=== PATIENT | female | born 1990 | race Two or more races ===

== ENCOUNTER 2023-09-07 05:25 | Inpatient (IN) ==
--- NOTE | 2023-09-01 15:06 | Anesthesiology Consultation ---
Date of Service September 01, 2023 Assessment & Plan (1) Encounter for pre-operative examination: Chart Review Chart Review: charge entry clerk initiated -Infectious Disease screening: Per PAT nursing assessment on 09/01/23. No known infectious disease contacts in past 10 days or current infectious disease symptoms. No recent travel outside the country. History Surgery Operation Date: 09/07/23 07:30 Proposed Procedures p Section in LD - Russell Montgomery MD Height/Weight Height: 5 ft 2 in Weight: 72.575 kg Allergies Allergy/AdvReac Type Severity Reaction Status Date / Time gluten Allergy Unknown celiac Verified 09/01/23 14:24 disease Medications Home Medications Medication Instructions Recorded Confirmed Last Taken acetaminophen 325 mg tablet 325 mg PO QID PRN Pain 09/01/23 09/01/23 Unknown ferrous sulfate 325 mg (65 mg 325 mg PO DAILY 09/01/23 09/01/23 Unknown iron) tablet (Iron (ferrous sulfate)) magnesium 250 mg tablet 600 mg PO DAILY 09/01/23 09/01/23 Unknown omeprazole 20 mg capsule,delayed 20 mg PO QAM 09/01/23 09/01/23 Unknown release [id number] 1 mg 1 tab PO QAM 09/01/23 09/01/23 Unknown tablet Past Medical History Medical History Anxiety Celiac disease Hx of migraines treated w/ acupuncture Lactose intolerance Past Family History Family History Other No family history of adverse response to anesthesia Past Surgical History Surgical History Hx of colonoscopy Hx of surgical procedure labial surgery Hx of wisdom tooth extraction Social History Smoking Status: Current every day smoker Smoking cigarettes per day: 4-5 per day - advised Do You Dip or Chew Tobacco: No Hx Alcohol Use: No Hx Substance Use: No substance use type: does not use
[2023-09-07] MEDS: LACTATED RINGER'S 1,000 ML IV SCH (06:00)
[2023-09-07] MEDS ORDERED: LACTATED RINGER'S 1,000 ML IV SCH ×2 (06:00→09:15)
[2023-09-07 06:12] LABS: Basophils # (auto) 0.03 K/uL (0.00-0.20); Basophils % (auto) 0.3 %; Eosinophils # (auto) 0.06 K/uL (0.00-0.50); Eosinophils % (auto) 0.5 %; Hematocrit (blood only) 36.6 % (37.0-47.0); Hemoglobin 12.7 g/dl (12.0-16.0); Immature Granulocytes # (auto) 0.08 K/uL (0.01-0.20); Immature Granulocytes % (auto) 0.7 %; Lymphocytes # (auto) 1.76 K/uL (1.20-3.40); Lymphocytes % (auto) 15.3 %; Mean Corpuscular Hemoglobin 30.1 pg (25.0-34.0); Mean Corpuscular Hgb Conc 34.7 g/dL (32.0-36.0); Mean Corpuscular Volume 86.7 fL (80.0-100.0); Mean Platelet Volume 11.6 fL (9.4-12.4); Monocytes # (auto) 0.66 K/uL (0.11-0.59); Monocytes % (auto) 5.7 %; Neutrophils % (auto) 77.5 %; Platelet Count 232 K/uL (130-400); RDW Coefficient of Variation 13.2 % (11.5-14.5); RDW Standard Deviation 41.2 fL (36.4-46.3); Red Blood Count 4.22 M/uL (4.20-5.40); White Blood Count 11.49 K/ul (4.8-10.8)
[2023-09-07] MEDS ORDERED: MoRPHine SULFATE PF 1 MG/ML 10 ML AMP/VIAL ONE (07:03)
[2023-09-07] MEDS: CITRIC ACID/SODIUM CITRATE 15 ML UDC ONE (07:05)
[2023-09-07] MEDS: ceFAZolin 2000MG 2,000 MG/15 ML SYR IV SCH (07:43)
--- NOTE | 2023-09-07 07:43 | History & Physical Bridge Note ---
Date of Service September 07, 2023 History & Physical Bridge Note I have examined the patient, reviewed the History & Physical and in the interval since the performance of the History & Physical I have noted the following changes of clinical significance: no changes noted
[2023-09-07] MEDS ORDERED: ePHEDrine sulfate 50 MG/5 ML SYR ONE (08:09)
[2023-09-07] MEDS ORDERED: PHENYLEPHRINE 100MCG/ML 10ML SYR IV ONE (08:09)
[2023-09-07] MEDS ORDERED: METOCLOPRAMIDE HCL INJ 5 MG/ML 2 ML VIAL ONE (08:09)
[2023-09-07] MEDS ORDERED: OXYTOCIN 10 UNITS/ML VIAL ONE ×2 (08:09→08:24)
[2023-09-07] MEDS ORDERED: ONDANSETRON INJ 2 MG/ML 2 ML VIAL ONE (08:09)
[2023-09-07] MEDS ORDERED: METHYLERGONOVINE MALEATE 0.2 MG/ML AMP ONE (08:24)
[2023-09-07] MEDS ORDERED: MoRPHine SULFATE 2 MG/ML CARP IV PRN (08:25)
[2023-09-07] MEDS ORDERED: PROMETHAZINE HCL 6.25 MG in SODIUM CHLORIDE 0.9% 50 ML IV PRN (08:25)
[2023-09-07] MEDS ORDERED: NALOXONE HCL 0.4 MG/1 ML VIAL/CARP IV PRN (08:25)
[2023-09-07] MEDS ORDERED: diphenhydrAMINE 50 MG/ML VIAL IV PRN (08:25)
[2023-09-07] MEDS ORDERED: NALBUPHINE HCL 5 MG in SYRINGE 0 ML IV PRN (08:25)
[2023-09-07] MEDS ORDERED: ePHEDrine sulfate 50 MG/ML AMP IV PRN (08:25)
[2023-09-07] MEDS ORDERED: NALOXONE HCL 0.08 MG in SYRINGE 1.8 ML IV PRN (08:25)
[2023-09-07] MEDS ORDERED: NALOXONE HCL 1 MG in SODIUM CHLORIDE 0.9% 1,000 ML IV PRN (08:25)
[2023-09-07] MEDS ORDERED: LACTATED RINGER'S 500 ML IV PRN (08:25)
[2023-09-07] MEDS ORDERED: ONDANSETRON INJ 2 MG/ML 2 ML VIAL IV PRN (08:25)
[2023-09-07] MEDS ORDERED: MoRPHine SULFATE PF 1 MG/ML 10 ML AMP/VIAL INT SPINAL ONE (08:25)
[2023-09-07] MEDS ORDERED: NO NARCOTICS OR SEDATIVES SCH (08:30)
[2023-09-07] MEDS ORDERED: SODIUM CHLORIDE 0.9% 1,000 ML IV SCH (08:30)
[2023-09-07] MEDS ORDERED: DC INTRASPINAL MORPHINE SCH (08:30)
[2023-09-07] MEDS ORDERED: PROPOFOL IV EMULSION 10 MG/ML 20 ML VIAL IV ONE (08:32)
[2023-09-07] MEDS: miSOPROStoL 200 MCG TAB ONE (09:00)
[2023-09-07] MEDS ORDERED: DIPHTHER/TETAN/PERTUS Vaccine (Tdap, Adol/Adult) 0.5mL IM ONE (09:11)
[2023-09-07] MEDS ORDERED: BENZOCAINE 20% SPRY 85 APPLN/85 GM CAN EXT PRN (09:11)
[2023-09-07] MEDS ORDERED: MAGNESIUM HYDROXIDE SUSP 30 ML UDC PO PRN (09:11)
[2023-09-07] MEDS ORDERED: SENNA 8.6 MG TAB PO PRN (09:11)
[2023-09-07] MEDS ORDERED: HYDROCORTISONE ACETATE 25 MG SUPP PR PRN (09:11)
--- NOTE | 2023-09-07 09:28 | Operative Report ---
Post Operative Report Pre & Post Diagnosis Operation Date: 09/07/23 07:30 > #1 at term. Patient wishes to have late section history of labioplasty. I identified the patient and participated in the time-out.: Yes Procedure Operation Date: 09/07/23 07:30 <No data on this case meets the specified criteria> primary section. Surgeon Russell Montgomery MD Induction Furnace Operator Dr sherwood Estimated Blood Loss 400 Findings Consistent with Post-Op Diagnosis infant delivered in cephalic presentation. Uterus is unremarkable tubes and ovaries are unremarkable there are no adhesions seen in the abdominal and pelvic Fluids IVF; 1900 urine 250 Specimens Placenta and cord gasses Drains luciano cath Anesthesia Type Spinal Complications none Indications at term patient is patient wishes to have elective section because of labioplasty. Description of Procedure Patient brought to the operating room Prepped and draped in normal sterile fashion in dorsal supine position with a leftward tilt. Time out is performed. Patient is identified by name and date of . Allergy and antibiotics and reviewed and confirmed. Skin check is performed to see if anesthesia is adequate A Pfannenstiel incision is made and carried out to the fascia with a scalpel. Fascia is incised in the midline extended laterally on both sides with Michaud scissors. Popeye's were used to grab the superior part of the fascial incision and the rectus abdominis muscle dissected with Michaud scissors.. Same procedure was performed on the lower section of the fascia. The rectus muscle is then in the midline and the peritoneum identified, tented up and entered sharply with the Metzenbaum scissors. The peritoneal incision was then extended superiorly and inferiorly with good visualization of the bladder. An Jag retractor was then inserted to provide better visualization and retraction. Vesicouterine peritoneum was identified, grasped with pickups and entered sharply with Metzenbaum scissors. The incision was then extended laterally and the bladder flap created with Metzenbaum scissors. The lower uterine segment incision was performed in a transverse fashion with a scalpel. Uterine incision was then extended laterally with the bandage scissors. Amniotomy is performed. Amniotic shows meconium The infant's head was delivered atraumatically. There is one cord which is easily reduced Nose and mouth suctioned with the bulb suction. Delayed cord clamping performed and cord is then clamped and cut and is handed over to the waiting pediatric team. Cord blood and gases obtained The placenta is then removed manually the uterus is exteriorized and cleared of all clots and debris. Uterine incision it repaired with 0-Vicryl in a locking fashion. A second layer of 0-Vicryl is used to obtain excellent hemostasis. Uterus is placed back into the abdominal cavity. The bladder flap was repaired in a running fashion with plain suture. Copious amount of irrigation was used to irrigate the abdomen. Gutters were cleared of all clots and debris . Hemostasis was obtained. The Jag retractor is removed as well as sponges or instruments in the abdomen. The peritoneum was identified and closed in a running fashion using plain suture. The rectus abdominis muscle was examined to ensure there no bleeding. The rectus abdominis muscle was approximated loosely using plain suture in a [id number] manner. Once again hemostasis is confirmed. The fascia was grasped with Harmeet's and closed in a running fashion. Both fascial layers are closed together using 0-Vicryl suture. Subcutaneous space is irrigated and hemostasis was confirmed. Subcutaneous space is approximated with plain suture. Skin is closed with darrian. The patient tolerated procedure well sponge just labs needle counts were correct x2 patient is sent to recovery in stable condition I attest to the content of the Intraoperative Record and any orders documented therein. Any exceptions are noted below. Induction Furnace Operator was necessary for retraction and manipulation of instruments in order to provide for a safe operation
[2023-09-07] MEDS: OXYTOCIN 20 UNITS/LR 1,002 ML IV SCH (09:36)
[2023-09-07 09:42] LABS: Base Excess Cord Venous Blood -0.7 mEq/L (-7.7-1.9); Cord Venous Blood HCO3 26 mmol/L (18.4-26.8); Cord Venous Blood PCO2 49 mmHg (30.4-57.2); Cord Venous Blood PO2 26 mmHg (14.1-43.3); Cord Venous Blood pH 7.33 (7.20-7.44); O2 Saturation Cord Venous Bld < 60.0 % (<68)
--- OUTSIDE RECORDS SUMMARY | 2023-09-07 09:53 | External Medical Summary | Summary of Care ---
Author Name Unknown Organization [facility] Address [address] [facility] [place] [address] Phone [phone] Care Team Providers Care Sailor Name Role Phone Unavailable Primary Care Provider Unavailabl e Reason for Visit * Reason Comments Return Visit Encounter Details Date Type Department Care Team (Late st Contact Info) Description 08/20/2023 2:30 PM EST Office Visit Gynecology/Obstetric s [facility] [address] [place] [address] Cathleen Hill PA-C [address] [place] [address] Encounter for supervision of normal first in third trimester*; Family history of gastroschisis; History of gynecologic surgery; Tobacco smoking affecting in third trimester; Depression complicating , antepartum; Limited care in third trimester Allergies No known active allergiesdocumented as of this encounter (statuses as of 08/20/2023) Medications Medication Sig Dispensed Refills Start Date End Date Status Omeprazole Magnesium 20 MG Oral Tablet Delayed Release Take 1 Tablet by mouth in the morning. 0 Active Magnesium 400 MG Oral Capsule Take 1 Capsule by mouth in the morning. 0 Active 28-0.8 MG Oral Tablet Take by mouth. 0 Active documented as of this encounter (statuses as of 08/20/2023) Active Problems Problem Noted Date Diagnosed Date Food insecurity 05/31/2023 Overview: Per [facility] Protocol , normal first 03/30/2023 Family history of gastroschisis 03/30/2023 Overview: Pt's half sister History of gynecologic surgery 03/30/2023 Overview: Hx labioplasty, desires primary C/S Tobacco smoking complicating Depression complicating , antepartum Estimated Date of Delivery Comme nts Yes 09/09/2023 Based on last me nstrual period of 12/03/2022 documented as of this encounter (statuses as of 08/20/2023) Social History Tobacco Use Types Packs/Day Years Used Date Smoking Tobacco: Every Day Cigarettes 0.3 Smokeless Tobacco: Never Alcohol Use Standard Drinks/Week Comments Not Currently 0 (1 standard drink = 0.6 oz pur e alcohol) PHQ-2 Answer Date Recorded PHQ Adult Total Score 10 07/14/2023 Hunger Vital Sign Answer Date Recorded Within the past 12 months, y ou worried that your food would run out before you got the money to buy more. Sometimes true Within the past 12 months, t he food you bought just didn't last and you didn't have money to get more. Never true [place] Depression Scale Answer Date Recorded [place] Depression Scale Total 21 06/29/2023 The thought of harming myself has occurred to me . Never 06/29/2023 Estimated Date of Delivery Comme nts Yes 09/09/2023 Based on last me nstrual period of 12/03/2022 Sex and Gender Information Value Date Recorded Sex Assigned at Female 01/22/2023 9:07 AM EDT Gender Identity Female 01/22/2023 9:07 AM EDT Sexual Orientation Straight 01/22/2023 9: 18 AM EDT Job Start Date Occupation Industry Not on file Not on file Not on file Travel History Travel Start Travel End [place] 07/29/2023 08/12/2023 documented as of this encounter Last Filed Vital Signs Vital Sign Reading Time Taken Comments Blood Pressure 118/62 08/20/2023 2:32 PM EST Pulse - - Temperature - - Respiratory Rate - - Oxygen Saturation - - Inhaled Oxygen Concentration - - Weight 71.8 kg (158 lb 3.2 oz) 08/20/2023 2:32 P M EST Height 157.5 cm (5' 2") 08/20/2023 2:32 PM EST Body Mass Index 28.94 08/20/2023 2:32 PM EST documented in this encounter Progress Notes * Cathleen Hill PA-C - 08/20/2023 2:37 PM EST 37w1d No care since 29 weeks. Moved to [place], did not establish with anyone d/t fear of meeting with different providers. She reports taking care of sick aunt at time. Had discussed primary C/S with Dr. Montgomery secondary to history of labiaplasty. Patient would still like to move forward with this. Automat Watcher already aware, will send TE in follow up. Currently living with FOB. Was incarcerated at time, no longer incarcerated. Feels safe at home. Does not want FOB listed on certificate. Due for GBS, collected. Passed 1 hour gtt. No anemia by third tri labs. RTC in 1 week Cathleen Hill PA-C documented in this encounter Nursing Notes * Chantel Nath RN - 08/20/2023 2:34 PM EST Patient here for MILY 37w1d Has not been seen since 29w No concerns + FM Chantel Nath RN documented in this encounter Plan of Treatment Pending Results Name Type Priority Associated Diagnoses Date /Time GROUP B STREP CULTURE/PCR Lab Routine Encounter for supervision of normal first in third trimester 08/20/2023 2:49 PM EST Scheduled Orders Name Type Priority Associated Diagnoses Orde r Schedule GROUP B STREP CULTURE/PCR Lab Routine Encounter for supervision of normal first in third trimester Expected: 08/20/2023, Expires: 08/20/2024 Health Maintenance Due Date Last Done Comments Hepatitis B (1 of 3 - 3-dose series) 1989 COVID-19 Vaccine (#1) 1989 Pneumococcal Vaccine: Pediat rics (0 to 5 Years) and At-Risk Patients (6 to 64 Years) (1 - PCV) 1995 DTaP,Tdap,and Td Vaccines (1 - Tdap) 2008 Pap Smear 2010 Cervical Cancer Screening 2019 HPV/Co-Test 2019 Influenza Vaccine (FLU shot) (#1) 2023 Depression, Most Recent Scor e >= 10 (will fire each visit until score < 10) 07/15/2023 07/14/2023 GARDASIL-HPV IMMUNIZATION SERIES Aged Out No longer eligible based on patient's age to complete this topic MENINGOCOCCAL (MENACTRA/MENVEO) Aged Out No longer eligible based on patient's age to complete this topic documented as of this encounter Medical Devices Not on filedocumented as of this encounter Visit Diagnoses Diagnosis Encounter for supervision of normal first in third trimester- Primary Supervision of normal first Family history of gastroschisis Family history of other condition History of gynecologic surgery Personal history of surgery to other organs Tobacco smoking affecting in third trimester Depression complicating , antepartum Mental disorders of mother, antepartum Limited care in third trimester documented in this encounter
--- OUTSIDE RECORDS SUMMARY | 2023-09-07 09:53 | External Medical Summary | Summary of Care ---
Author Name Unknown Organization [facility] Address [address] [facility] [address] Phone [phone] Care Team Providers Care Professional Housing Consultant Name Role Phone Unavailable Primary Care Provider Unavailabl e Reason for Visit * Reason Comments Return Visit Encounter Details Date Type Department Care Team (Late st Contact Info) Description 08/27/2023 9:30 AM EST Office Visit Gynecology/Obstetric s [facility] [address] [place] [address] Nisa Porras CRNP [address] [place] [address] Encounter for supervision of normal first in third trimester*; Family history of gastroschisis; History of gynecologic surgery; Tobacco smoking affecting in third trimester; Depression complicating , antepartum Allergies No known active allergiesdocumented as of this encounter (statuses as of 08/27/2023) Medications Medication Sig Dispensed Refills Start Date End Date Status Omeprazole Magnesium 20 MG Oral Tablet Delayed Release Take 1 Tablet by mouth in the morning. 0 Active Magnesium 400 MG Oral Capsule Take 1 Capsule by mouth in the morning. 0 Active 28-0.8 MG Oral Tablet Take by mouth. 0 Active documented as of this encounter (statuses as of 08/27/2023) Active Problems Problem Noted Date Diagnosed Date [...] as of this encounter (statuses as of 08/27/2023) Social History Tobacco Use Types Packs/Day Years [...] have money to get more. Never true [place] Depression Scale Answer Date Recorded [place] Depression Scale Total 21 06/29/2023 The thought [...] file Travel History Travel Start Travel End [place] 07/29/2023 08/12/2023 documented as of this encounter Last Filed Vital Signs Vital Sign Reading Time Taken Comments Blood Pressure 114/62 08/27/2023 9:36 AM EST Pulse - - Temperature - - Respiratory Rate - - Oxygen Saturation - - Inhaled Oxygen Concentration - - Weight 69.4 kg (153 lb) 08/27/2023 9:36 AM EST Height 157.5 cm (5' 2") 08/27/2023 9:36 AM EST Body Mass Index 27.98 08/27/2023 9:36 AM EST documented in this encounter Progress Notes * Nisa Porras CRNP - 08/27/2023 9:50 AM EST 38w1d Concerned that c/s is only one day before EDC. Explained this is fine, if she goes in to labor prior to date, c/s will be done at that time. We then discussed s/s of labor at length. Interested in bottle feeding, OCPs . May want another child in a short period of time d/ther age, but isn't sure where relationship stands with FOB. Baby is active. No contractions or bleeding, denies LOF. GAIL Adler * Karishma Crystal LPN - 08/27/2023 9:37 AM EST 38w1d Denies any concerns documented in this encounter Plan of Treatment Upcoming Encounters Date Type Department Care Team (Late st Contact Info) Description 09/01/2023 9:30 AM EST [facility] [place] [address] [place] [address] Russell Montgomery MD [address] [place] [phone] 09/15/2023 11:30 AM EST Office Visit [facility]necology[facility]stetrics [facility] [address] [address] Anastasiya Causey CRNP [address] [place] [address] Health Maintenance Due Date Last Done Comments [...] , antepartum Mental disorders of mother, antepartum documented in this encounter
--- OUTSIDE RECORDS SUMMARY | 2023-09-07 09:53 | External Medical Summary | Summary of Care ---
Author Name Unknown Organization [facility] Address [address] [place] [facility] [place] [address] Phone [phone] Care Team Providers Care Obstetrician/Gynecologist Name Role Phone Unavailable Primary Care Provider Unavailabl e Reason for Visit * Reason Comments Return Visit Encounter Details Date Type Department Care Team (Late st Contact Info) Description 09/01/2023 9:30 AM EST Office Visit Gynecology/Obstetric s [facility] [address] [place] [address] Russell Montgomery MD [address] [place] [address] Encounter for supervision of normal first in third trimester*; Family history of gastroschisis; History of gynecologic surgery; Tobacco smoking affecting in third trimester; Depression complicating , antepartum Allergies No known active allergiesdocumented as of this encounter (statuses as of 09/01/2023) Medications Medication Sig Dispensed Refills Start Date End Date Status Omeprazole Magnesium 20 MG Oral Tablet Delayed Release Take 1 Tablet by mouth in the morning. 0 Active Magnesium 400 MG Oral Capsule Take 1 Capsule by mouth in the morning. 0 Active 28-0.8 MG Oral Tablet Take by mouth. 0 Active documented as of this encounter (statuses as of 09/01/2023) Active Problems Problem Noted Date Diagnosed Date [...] as of this encounter (statuses as of 09/01/2023) Social History Tobacco Use Types Packs/Day Years [...] have money to get more. Never true [place] Depression Scale Answer Date Recorded [place] Depression Scale Total 21 06/29/2023 The thought [...] Sign Reading Time Taken Comments Blood Pressure 110/60 09/01/2023 9:30 AM EST Pulse - - Temperature - - Respiratory Rate - - Oxygen Saturation - - Inhaled Oxygen Concentration - - Weight 72.6 kg (160 lb) 09/01/2023 9:30 AM EST Height 157.5 cm (5' 2") 09/01/2023 9:30 AM EST Body Mass Index 29.26 09/01/2023 9:30 AM EST documented in this encounter Progress Notes * Russell Montgomery MD - 09/01/2023 9:40 AM EST Pt doing well No complaints Preop H&P done Consent obtained documented in this encounter H&P Notes * Russell Montgomery MD - 09/01/2023 9:48 AM EST [facility] [address] [facility] [address] Appt line [phone] Tomeka Toscano is a 33 year old year old year old at 38w6d Patient is . Estimated Date of Delivery: 09/09/23 Pt had labioplasty in the past and wishes to have section Risk of surgery is discussed with pt and pt has agreed to proceed with surgery Patient is here for preop : OB History Para Term AB Living 1 SAB IAB Ectopic Multiple Live Births # Outcome Date GA Lbr Bradley/2nd Weight Sex Delivery Anes PTL Lv 1 Current Date Labor Sex Delivery Anesth Del Comments GA Length Weight Type Site Window Maker History: Menstrual Index: // days. Denies h/o STDs and abnormal Paps. Her past medical/surgical histories and current medications are recorded in the electronic record. Past Surgical History: Procedure Laterality Date ANESTH, SURG ON VAG/URETHRAL 2017 LABIAPLASTY Family History Problem Relation Age of Onset Gastro-intestinal disorder Sister gastroschisis Diabetes Grandmother (Paternal) Breast Cancer Grandmother (Paternal) History Social History Socioeconomic History Marital status: Spouse name: Not on file Number of children: Not on file Years of education: Not on file Highest education level: Not on file Occupational History Not on file Tobacco Use Smoking status: Every Day Packs/day: .25 Types: Cigarettes Smokeless tobacco: Never Substance and Sexual Activity Alcohol use: Not Currently Drug use: Not Currently Sexual activity: Yes Partners: Male Other Topics Concern Not on file Social History Narrative Not on file Social Determinants of Health Financial Resource Strain: Not on file Food Insecurity: Food Insecurity Present (04/30/2023) Hunger Vital Sign Worried About Running Out of Food in the Last Year: Sometimes true Ran Out of Food in the Last Year: Never true Transportation Needs: Not on file Physical Activity: Not on file Stress: Not on file Social Connections: Not on file Intimate Partner Violence: Not on file Housing Stability: Not on file @[employer]@ Physical Exam: BP 110/60 | Ht 1.575 m (5' 2") | Wt 72.6 kg (160 lb) | LMP 12/03/2022 | BMI 29.26 kg/m | BSA 1.78m CV: S1, S2. Regular rate and Rhythm Lungs: Clear to auscultation bilaterally. Abdomen: Soft Extremities: Soft non tender calves bilaterally. A/P: 33 year old year old S/p labioplasty Wishes to have c/sec We have discussed the risk alternatives and complications of surgery including more surgery to correct complication,risk of anesthesia,infection,damage to internal organs and . We have also discussed the possibility that pt's present situation may not change. Pt is aware and wishes to proceed to surgery. Consent is signed Pt is scheduled for section Russell Montgomery MD 09/01/2023 9:48 AM documented in this encounter Nursing Notes * Karishma Crystal LPN - 09/01/2023 9:26 AM EST 38w6d Pt is here for pre-op for csection documented in this encounter Plan of Treatment Upcoming Encounters Date Type Department Care Team (Late st Contact Info) Description 09/15/2023 11:30 AM EST Office Visit Gynecology/Obstetrics [facility] [address] [place] [address] Anastasiya Causey CRNP [address] [place] [address] Health Maintenance Due Date Last Done Comments [...]
--- OUTSIDE RECORDS SUMMARY | 2023-09-07 09:53 | External Medical Summary ---
Author Name Unknown Address Unknown Organization [id number]:[facility] [place] [address] [facility] [address] Laboratory Report Ordering Provider Test Date Status RIGOBERTO CHUNG 08/20/2023 14:49:42 Final Observation Date Value Abnormality Reference (Units ) Status Streptococcus agalactiae DNA [Presence] in Specimen by KAI with probe detection 08/20/2023 14:49:42 Negative Negative Final No Group B Streptococcus det ected by culture-enhanced PCR (amplified probe).
The collection of vaginal/rectal swab specimen combinations (FDA approved specimen type) is optimal for the detection of Group B Streptococcus. Single source collection (vaginal only or rectal only) or alternate specimen sources may lead to false negative results. Performing Location [facility] [place] [address] [place] [address] [place] [address]
--- OUTSIDE RECORDS SUMMARY | 2023-09-07 09:53 | External Medical Summary | Summary of Care ---
Author Name Unknown Organization [facility] Address [address] [facility] [address] Phone [phone] Care Team Providers Care Quality Assurance Supervisor Trim Name Role Phone Unavailable Primary Care Provider Unavailabl e Reason for Visit * Reason Onset Date Comments Advice 08/23/2023 Encounter Details Date Type Department Care Team (Late st Contact Info) Description 08/23/2023 Telephone Gynecology/Obstetrics [facility] [address] [place] [address] Cathleen Hill PA-C [address] [place] [address] Advice Allergies No known active allergiesdocumented as of this encounter (statuses as of 08/24/2023) Medications Medication Sig Dispensed Refills Start Date End Date Status Omeprazole Magnesium 20 MG Oral Tablet Delayed Release Take 1 Tablet by mouth in the morning. 0 Active Magnesium 400 MG Oral Capsule Take 1 Capsule by mouth in the morning. 0 Active 28-0.8 MG Oral Tablet Take by mouth. 0 Active documented as of this encounter (statuses as of 08/24/2023) Active Problems Problem Noted Date Diagnosed Date Food insecurity 05/31/2023 Overview: Per [facility] Protocol , normal first 03/30/2023 Family history of gastroschisis 03/30/2023 Overview: Pt's half sister History of gynecologic surgery 03/30/2023 Overview: Hx labioplasty, desires primary C/S Tobacco smoking complicating 3 Depression complicating , antepartum Estimated Date of Delivery Comme nts Yes 09/09/2023 Based on last me nstrual period of 12/03/2022 documented as of this encounter (statuses as of 08/24/2023) Social History Tobacco Use Types Packs/Day Years [...] have money to get more. Never true [place] Depression Scale Answer Date Recorded [place] Depression Scale Total 21 06/29/2023 The thought [...] file Travel History Travel Start Travel End [place] 07/29/2023 08/12/2023 documented as of this encounter Miscellaneous Notes * Telephone Encounter - Ebony Gil OSA - 08/24/2023 12:43 PM EST Pt scheduled 09/07 w/ Dr Montgomery * Telephone Encounter - Vikki Sanz RN - 08/23/2023 2:34 PM EST Pt called to check on status of . Pt can be reached at [phone]. documented in this encounter Plan of Treatment Upcoming Encounters Date Type Department Care Team (Late st Contact Info) Description 08/27/2023 9:30 AM EST Office Visit Gynecology/Obstetrics [facility] [address] [place] [address] Nisa Porras CRNP [address] [place] [address] 09/01/2023 9:30 AM EST Office Visit Gynecology/Obstetrics [facility] [address] [place] [address] Russell Montgomery MD [address] [place] [address] 09/15/2023 11:30 AM EST Office Visit Gynecology/Obstetrics [facility] [address] [place] [address] Anastasiya Causey CRNP [address] [place] [address] Health Maintenance Due Date Last Done Comments [...]
--- OUTSIDE RECORDS SUMMARY | 2023-09-07 09:53 | External Medical Summary | Summary of Care ---
Author Name Unknown Organization [facility] Address [address] [facility] [address] Phone [phone] Care Team Providers Care Speed Operator Name Role Phone Unavailable Primary Care Provider Unavailabl e Reason for Visit * Reason Comments Return Visit Encounter Details Date Type Department Care Team (Late st Contact Info) Description 08/27/2023 9:30 AM EST Office Visit Gynecology/Obstetric s [facility] [address] [place] [address] Nisa Porras CRNP [address] [place] [address] Encounter for supervision of normal first in [...] have money to get more. Never true [place] Depression Scale Answer Date Recorded [place] Depression Scale Total 21 06/29/2023 The thought [...] file Travel History Travel Start Travel End [place] 07/29/2023 08/12/2023 documented as of this encounter [...] 09/01/2023 9:30 AM EST [facility] [address] [place] [address] Russell Montgomery MD [address] [place] [address] 09/15/2023 11:30 AM EST Office Visit Gynecology[facility]Obstetrics [facility] [address] [place] [address] Anastasiya Causey CRNP [address] [place] [address] Health Maintenance Due Date Last Done Comments [...]
--- OUTSIDE RECORDS SUMMARY | 2023-09-07 09:54 | External Medical Summary | Summary of Care ---
Author Name Unknown Organization [facility] [address] [place] [address] Phone [phone] Care Team Providers Care Tip Scourer Name Role Phone Unavailable Primary Care Provider Unavailabl e Encounter Details Date Type Department Care Team (Late st Contact Info) Description 06/30/2023 Telephone Gynecology/Obstetrics [facility] [address] [facility] [place] [address] Russell Montgomery MD [address] [place] [address] Allergies No known active allergiesdocumented as of this encounter (statuses as of 06/30/2023) Medications Medication Sig Dispensed Refills Start Date End Date Status Omeprazole Magnesium 20 MG Oral Tablet Delayed Release Take 1 Tablet by mouth in the morning. 0 Active Magnesium 400 MG Oral Capsule Take 1 Capsule by mouth in the morning. 0 Active 28-0.8 MG Oral Tablet Take by mouth. 0 Active documented as of this encounter (statuses as of 06/30/2023) Active Problems Problem Noted Date Diagnosed Date [...] as of this encounter (statuses as of 06/30/2023) Social History Tobacco Use Types Packs/Day Years Used Date Smoking Tobacco: Every Day Cigarettes 0.3 Smokeless Tobacco: Never Alcohol Use Standard Drinks/Week Comments Not Currently 0 (1 standard drink = 0.6 oz pur e alcohol) PHQ-2 Answer Date Recorded PHQ Adult Total Score 10 06/28/2023 Hunger Vital Sign Answer Date Recorded Within the past 12 months, y ou worried that your food would run out before you got the money to buy more. Sometimes true Within the past 12 months, t he food you bought just didn't last and you didn't have money to get more. Never true [place] Depression Scale Answer Date Recorded [place] Depression Scale Total 21 06/29/2023 The thought [...] file Not on file Not on file documented as of this encounter Miscellaneous Notes * Telephone Encounter - Brigitte Carrasquillo MD - 06/30/2023 4:17 PM EST Please notify Patient that her 1 hour glucose tolerance test was normal. Negative syphilis. CBC showed a slightly elevated white count, which can be seen at times of fighting an infection or decreased immunity. Her CBC does not indicate anemia. Thanks, Dr. Carrasquillo * Telephone Encounter - Annia Kirkland RN - 06/30/2023 10:52 AM EST T/C from pt checking on status of recent lab results. Please review with provider. Isauro's pt. documented in this encounter Plan of Treatment Upcoming Encounters Date Type Department Care Team (Late st Contact Info) Description 07/14/2023 11:00 AM EST Telemedicine Psychology, [place] [address] [place] [address] Bouchra Dumont, ENROLLMENT MANAGER [address] [place] [address] 07/21/2023 11:30 AM EST Office Visit Gynecology/Obstetrics [facility] [address] [facility] [place] [address] Anastasiya Causey CRNP [address] [place] [address] Health Maintenance Due Date Last Done Comments [...] fire each visit until score < 10) 06/29/2023 06/28/2023 GARDASIL-HPV IMMUNIZATION SERIES Aged Out No longer eligible based on patient's age to complete this topic MENINGOCOCCAL (MENACTRA/MENVEO) Aged Out No longer eligible based on patient's age to complete this topic documented as of this encounter Medical Devices Not on filedocumented as of this encounter
--- OUTSIDE RECORDS SUMMARY | 2023-09-07 09:54 | External Medical Summary | Summary of Care ---
Author Name Unknown Organization [facility] Address [address] [place] [address] Phone [phone] Care Team Providers Care Global Regulatory Lead Name Role Phone Unavailable Primary Care Provider Unavailabl e Reason for Visit * Reason Comments Anxiety Depression Encounter Details Date Type Department Care Team (Late st Contact Info) Description 06/28/2023 1:30 PM [facility] [address], [place] [id number] Bouchra Dumont, [facility] [address] [place] [address] Major depressive disorder, recurrent episode, moderate (HCC)*; PIPO (generalized anxiety disorder); PTSD (post-traumatic stress disorder) Allergies No known active allergiesdocumented as of this encounter (statuses as of 06/28/2023) Medications Medication Sig Dispensed Refills Start Date End Date Status Omeprazole Magnesium 20 MG Oral Tablet Delayed Release Take 1 Tablet by mouth in the morning. 0 Active Magnesium 400 MG Oral Capsule Take 1 Capsule by mouth in the morning. 0 Active 28-0.8 MG Oral Tablet Take by mouth. 0 Active documented as of this encounter (statuses as of 06/28/2023) Active Problems Problem Noted Date Diagnosed Date Food insecurity 05/31/2023 Overview: Per [facility] Protocol , normal first 03/30/2023 Family history of gastroschisis 03/30/2023 Overview: Pt's half sister History of gynecologic surgery 03/30/2023 Overview: Hx labioplasty, desires primary C/S Tobacco smoking complicating 09/12/202 3 Depression complicating , antepartum Estimated Date of Delivery Comme nts Yes 09/09/2023 Based on last me nstrual period of 12/03/2022 documented as of this encounter (statuses as of 06/28/2023) Social History Tobacco Use Types Packs/Day Years [...] have money to get more. Never true [place] Depression Scale Answer Date Recorded [place] Depression Scale Total 24 04/30/2023 The thought of harming myself has occurred to me . Never 04/30/2023 Estimated Date of Delivery Comme nts Yes [...] on file documented as of this encounter Progress Notes * Bouchra Dumont, GEAR SETTER - 06/28/2023 1:35 PM EST Patient location: HOME. I was not in a hospital or clinic location. After connecting through televideo, patient was verified with two unique identifiers. Patient (or authorized legal leather goods sales representative) was then informed that this was a Telemedicine visit and being conducted confidentially over secure lines. Methods to assure confidentiality were taken. Patient acknowledged consent and understanding of privacy and security of the Telemedicine visit. The patient agreed to participate. Tomeka was at home in [place]. No one else was reported to be present. Residential address on [facility] verified to still beaccurate. My office door was closed. No one else was in the room with me. I informed the patient that I have reviewed their record in [facility] and presented the opportunity for them to ask any questions regarding the visit today. The patient agreed to participate. Provider reviewed elements of Outpatient Services Description including limits of confidentiality, how to contact the department, risks and benefits of treatment and consent for treatment. Start Time: 1:35p Stop Time: 2:32p Total direct [id number] time: 57 Minutes BEHAVIORAL MEDICINE PROGRESS [facility] [address] [address] 06/28/2023 1:35 PM TYPE OF VISIT: Individual DIAGNOSIS: Major depressive disorder, recurrent, moderate [F33.1], Generalized anxiety disorder [F41.1], Post-traumatic stress disorder, unspecified [F43.10] REASON FOR FOLLOW-UP: Individual therapy Session #: 3 SESSION FOCUS: Session focused on sx of anxiety, depression, and Tomeka's coping ability. PHQ9 & GAD7 screeners completed and reviewed along with prior screener(s). It was noted that sx of anxiety increased to severe range, and depressive sx increased from mild to moderate. Tomeka provided update since last session and discussed ongoing stressors. NOTES: Tomeka discussed ongoing stressors and provided update on positive experience. Tomeka was happy to report that an anonymous donor filled her gas tank so that she can have heating. The latter is a good experience for Tomeka due to the financial problems she has been experiencing. She reportedhaving $500 left and not knowing what she is going to do afterwards. Tomeka also discussed how challenging it has been not finding someone who can take in her boyfriend's dog as she will not be able to take it with to her aunt's house. She also has a dog of her own; however, her dog is trained and her aunt will accept her dog. Tomeka also reported not knowing when her boyfriend will get out as court hearing has been inconclusive. Further, Tomeka reported discovering her house might have a mold problem and has been awaiting to hear back from the landla. Tomeka also discussed her recent outreach to ex- and feeling responsible for his well-being as he verbalized to her that he has notbeen doing well. Therapist helped Tomeka process reported stressors and congratulated her on receiving the unexpected gift of a full gas tank for heating. Psycho-education on problem-solving and identifying the best possible solutions that are conducive towards her well-being was provided and discussed. Tomeka was guided in further understanding unhelpful thinking and behavior and how to create asafe emotional space to self-reflect, evaluate, and make healthy decision-making. The effects of trauma on the brain and attachment issues resulting in trauma- bonding was also explored and discussed.Tomeka identified tendency to overextend her caring for others and identified a prior traumatic experience with her sister that may have led to deep-seated need to rescue others. Establishing healthyemotional, internal, and other types of boundaries was discussed and highly encouraged. Tomeka further identified she is fearful of being lonely and self-refected the latter led her to current relationship. She continues to explore alternative options and next steps to take regarding her current sit uation. Information on healthy boundaries sent via xkoto. PROGRESS TOWARDS GOALS: Tomeka attended on time and was well-engaged. She started exploring hx of PTSD and increasing insight into unhelpful thinking styles that leads her to feel anxious and depressed. Goal: Improved self-management of anxiety, depression, PTSD, and Tomeka's ability to cope with personal stressors. Objective Measures: Pipo-7 Question 06/28/2023 11:03 AM EST - Filed by Patient Over the last 2 weeks, how often have you been bothered by the following problems? Feeling nervous, anxious, or on edge More than half the days Not being able to stop or control worrying Nearly every day Worrying too much about different things Nearly every day Trouble relaxing More than half the days Being so restless that is hard to sit still Several days Becoming easily annoyed or irritable More than half of the days Feeling afraid as if something awful might happen More than half the days Total score of all questions (range: 0 - 21) 15 (Severe) Myc Visit Accident Related Question Question 06/28/2023 11:04 AM EST - Filed by Patient Is this visit related to an accident? (i.e work, motor vehicle) No Phq9-Depression Question 06/28/2023 1:39 PM EST - Filed by Bouchra Dumont LPC Over the last two weeks, how often have you been bothered by any of the following problems? Little interest or pleasure in doing things Several days Feeling down, depressed or hopeless Several days Over the last two weeks, how often have you been bothered by any of the following problems? Trouble falling or staying asleep, or sleeping too much Nearly everyday Feeling tired or having little energy Nearly everyday Poor appetite or overeating Not at all Feeling bad about yourself - or that you are a failure, or have let yourself or your family down Several days Trouble concentrating on things, such as reading the newspaper or watching television Several days Moving or speaking so slowly that other people could have noticed. Or the opposite - being so fidgety or restless that you have been moving around a lot more than usual Not at all Thoughts that you would be better off , or of hurting yourself Not at all Question 1 score (range: 0 - 3) 1 Question 2 score (range: 0 - 3) 1 Question 3 score (range: 0 - 3) 3 Question 4 score (range: 0 - 3) 3 Question 5 score (range: 0 - 3) 0 Question 6 score (range: 0 - 3) 1 Question 7 score (range: 0 - 3) 1 Question 8 score (range: 0 - 3) 0 Question 9 score (range: 0 - 3) 0 Sum of all PHQ9 questions. (range: 0 - 27) 10 (Moderate Depression) B-Folq-Xebtlqfo/Clgfad-Qxni-Sxxzuo Question 06/28/2023 1:39 PM EST - Filed by Bouchra Dumont LPC In the past month, have you wished you were or wished you could go to sleep and not wake up? No In the past month, have you actually had any thoughts about killing yourself? No In your lifetime, have you ever done anything, started to do anything, or prepared to do anything to end your life? No INTERVENTION: Outpatient Adult Therapy Treatment Plan Treatment plan was developed on 05/14/23, treatment will continue to focus on goals below; Treatment update will occur when clinically indicated or by 11/09/2023. Patient's goals captured in patient's words: "I would like to go through the 4.5 past years becauseI can't let it go. Everyday that is with me. Also, working on my anxiety and depression to manage that better. " Expected family or significant other involvement: Not applicable Type of Service:Individual Patients Strengths and Facilitating Factors to care: Recognizes need for change, Seeking help, GoalOriented, Cooperative, and Good physical health Treatment Barriers: none identified Crisis Planning: What I can do if I ever experience a crisis (much worse symptoms, severe distress or thoughts of self-harm): Talking to loved one or friend or trusted person and Express my feelings People I can call in the event of a crisis: Family Member: Aunt Jessica Additional resources I can utilize if the previous steps are ineffective (e.g: ED, hotlines): Suicide and Crisis Lifeline - 988 and [facility] Hotlines for Help Signature Obtained on Treatment Plan Patient/ Family Received Copy of Treatment Plan Duration of Treatment Frequency of Treatment Patient unable to sign Treatment Plan acknowledgement document. Signature will be obtained at the time or before [facility] bulletin extension expires. Patient has access to [facility]11 sessions every other week Patient Identified Needs/Goals Interventions Objective/ Discharge Criteria Problem/Need 1: Anxiety, Depression, PTSD, and Other: Coping Skills Cognitive Behavioral Therapy (CBT), which includes psychoeducation, cognitive restructuring, relaxation/diaphragmatic breathing, problem-solving, and behavioral activation PHQ<5, PIPO<5, and Achieved maintenance treatment phase at full therapeutic dosage for 6-12 months by increasing coping ability. PATIENT EDUCATION: Verbal & written MENTAL STATUS AND BEHAVIORAL OBSERVATIONS: Appearance: within normal limits Behavior: within normal limits Speech: normal pitch, rate and volume Affect: Congruent with content of conversation Thought Process: within normal limits and goal directed Thought Content: within normal limits Intellectual Function: within normal limits Sensorium: alert and oriented to person, place, time and situation Cognition: grossly intact Insight/Judgment: good Suicide/Homicidal Assessment Validated Screening and Assessment Measures PHQ-9, item 9: NEGATIVE C-SSRS administered: Yes, No suicidal risk present. No prior hx of SIB reported. Risk Factors: - Current SI/HI (including frequency and duration): None - Current plan: None - Current intent: None - Suicide attempt or self-harm in the last 3 months: None - Access to means (if firearms and/or medications are present, complete lethal means reduction): None - Lethal means access reduction steps taken: Not applicable - History of suicide attempts/self harm: None - Preparations (giving possessions away, making a will): None - Recent stressors/losses (job loss, medical diagnosis, relationship loss: "Being alone and having to do everything by myself." - Other fixed/chronic risk factors: None - Other modifiable risk factors: anxiety, depression, and coping ability Protective factors: -sense of responsibility to children/pets/others: "Keeping the house up, I have two dogs." -social connectedness: "We have amazing neighbors, I have an aunt and a cousin living in [place]." -willingness to engage in mental health services: Receptive to therapy -future-oriented thinking/planning: "Being a good mom." -coping/social/emotion regulation/self-soothing skills present: "Spending time with my dogs, if I feel stressed, I smoke a cigarette." -has cultural or roman catholic beliefs that discourage suicide: "I do believe that everything happen for a reason." Risk Level Impression: -Low risk: Continue outpatient therapy; safety plan may still be indicated; provided crisis numbers -No change in risk from last session (see note dated 06/17/23 for further details) FOLLOW-UP PLAN: Return: 2 weeks on 07/14 @ 11:00a. Action Plan: 1. Continue Individual Cognitive Behavioral Therapy Bouchra Dumont PsyD, LEXI, NCC, ACS, [facility] Division of Psychiatry & Behavioral Medicine [facility] [phone] documented in this encounter Plan of Treatment Upcoming Encounters Date Type Department Care Team (Late st Contact Info) Description 06/29/2023 10:00 AM EST Laboratory Laboratory, [facility] [address] [place] [id number] [facility] [address] [place] [address] 06/29/2023 10:15 AM EST Office Visit Gynecology/Obstetrics [facility] [address] [place] [address] Nisa Porras CRNP [address] [place] [address] 07/14/2023 11:00 AM EST Telemedicine [facility], [place] [address] [place] [address] Bouchra Dumont, GEAR SETTER [address] [place] [address] Health Maintenance Due Date Last Done Comments Hepatitis B (1 of 3 - 3-dose series) 1989 COVID-19 Vaccine (#1) 1989 Pneumococcal Vaccine: Pediat rics (0 to 5 Years) and At-Risk Patients (6 to 64 Years) (1 - PCV) 1995 DTaP,Tdap,and Td Vaccines (1 - Tdap) 2008 Pap Smear 2010 Cervical Cancer Screening 2019 HPV/Co-Test 2019 Influenza Vaccine (FLU shot) (#1) 2023 Depression Screening 06/17/2024 06/17/2023 GARDASIL-HPV IMMUNIZATION SERIES Aged Out No longer eligible based on patient's age to complete this topic MENINGOCOCCAL (MENACTRA/MENVEO) Aged Out No longer eligible based on patient's age to complete this topic documented as of this encounter Medical Devices Not on filedocumented as of this encounter Visit Diagnoses Diagnosis Major depressive disorder, recurrent episode, moderate (HCC)- Primary Major depressive disorder, recurrent episode, moderate PIPO (generalized anxiety disorder) Generalized anxiety disorder PTSD (post-traumatic stress disorder) Posttraumatic stress disorder documented in this encounter
--- OUTSIDE RECORDS SUMMARY | 2023-09-07 09:54 | External Medical Summary | Summary of Care ---
Author Name Unknown Organization [facility] Address [address] [facility] [address] Phone [phone] Care Team Providers Care Bindery Helper Name Role Phone Unavailable Primary Care Provider Unavailabl e Reason for Visit * Reason Comments Return Visit Encounter Details Date Type Department Care Team (Late st Contact Info) Description 06/29/2023 10:15 AM EST Office Visit Gynecology/Obstetric s [facility] [address] [place] [address] Nisa Porras CRNP [address] [place] [address] Encounter for supervision of normal first in third trimester*; Family history of gastroschisis; History of gynecologic surgery; Tobacco smoking affecting , antepartum; Depression complicating , antepartum Allergies No known active allergiesdocumented as of this encounter (statuses as of 06/29/2023) Medications Medication Sig Dispensed Refills Start Date End Date Status Omeprazole Magnesium 20 MG Oral Tablet Delayed Release Take 1 Tablet by mouth in the morning. 0 Active Magnesium 400 MG Oral Capsule Take 1 Capsule by mouth in the morning. 0 Active 28-0.8 MG Oral Tablet Take by mouth. 0 Active documented as of this encounter (statuses as of 06/29/2023) Active Problems Problem Noted Date Diagnosed Date [...] as of this encounter (statuses as of 06/29/2023) Social History Tobacco Use Types Packs/Day Years [...] have money to get more. Never true Lexa Depression Scale Answer Date Recorded Lexa Depression Scale Total 21 06/29/2023 The thought [...] on file documented as of this encounter Last Filed Vital Signs Vital Sign Reading Time Taken Comments Blood Pressure 108/62 06/29/2023 10:08 AM EST Pulse - - Temperature - - Respiratory Rate - - Oxygen Saturation - - Inhaled Oxygen Concentration - - Weight 67.1 kg (148 lb) 06/29/2023 10:08 AM EST Height 157.5 cm (5' 2") 06/29/2023 10:08 AM EST Body Mass Index 27.07 06/29/2023 10:08 AM EST documented in this encounter Progress Notes * Nisa Porras CRNP - 06/29/2023 12:48 PM EST 29w5d Requesting FOB name and information be removed from chart. He is incarcerated. Has questions regarding length of stay at hospital as well as cost. Following with psych, had appt yesterday. Still does not want to start any medication. Glucola today. Undecided about TDAP. Still interested in primary c/s. GAIL Adler documented in this encounter Nursing Notes * Susie Daly LPN - 06/29/2023 10:11 AM EST 29w5d Back pain. Considering tdap. documented in this encounter Plan of Treatment Upcoming Encounters Date Type Department Care Team (Late st Contact Info) Description 07/14/2023 11:00 AM EST Telemedicine [facility] [address] [place] [address] Boucrha Dumont [facility] [address] [place] [address] Health Maintenance Due Date Last Done Comments [...] surgery to other organs Tobacco smoking affecting , antepartum Depression complicating , antepartum Mental disorders of mother, antepartum documented in this encounter
--- OUTSIDE RECORDS SUMMARY | 2023-09-07 09:54 | External Medical Summary | Summary of Care ---
Author Name Unknown Organization [facility] [address] [place] [address] Phone [phone] Care Team Providers Care Hydrogeology Professor Name Role Phone Unavailable Primary Care Provider Unavailabl e Encounter Details Date Type Department Care Team (Late st Contact Info) Description 06/30/2023 Telephone Gynecology/Obstetrics [facility] [address] [facility] [place] [address] Russell Montgomery MD [address] [place] [phone] Allergies No known active allergiesdocumented as of [...] have money to get more. Never true [place] Depression Scale Answer Date Recorded [place] Depression Scale Total 21 06/29/2023 The thought [...] encounter Miscellaneous Notes * Telephone Encounter - Annia Kirkland RN - 06/30/2023 10:52 AM EST T/C from pt checking on status of recent lab results. Please review with provider. Isauro's pt. documented in this encounter Plan of Treatment Upcoming Encounters Date Type Department Care Team (Late st Contact Info) Description 07/14/2023 11:00 AM EST Telemedicine [facility] [place] [address] [place] [address] Bouchra Dumont, [facility] [address] [place] [address] 07/21/2023 11:30 AM EST Office Visit Gynecology/Obstetrics Anna York [address] [place] [address] [place], GAIL Stanford [address] [place] [address] Health Maintenance Due Date Last Done Comments [...]
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
--- OUTSIDE RECORDS SUMMARY | 2023-09-07 09:54 | External Medical Summary | Summary of Care ---
Author Name Unknown Organization [facility] Address [address] [place] [address] Phone [phone] Care Team Providers Care Round Cutter Operator Name Role Phone Unavailable Primary Care Provider Unavailabl e Reason for Visit * Reason Comments Outpatient Testing Encounter Details Date Type Department Care Team (Late st Contact Info) Description 06/29/2023 10:00 AM EST Laboratory Laboratory, [facility] [address] [facility] [place] [id number] [facility] [address] [facility] [address] Encounter for supervision of normal first in third trimester Allergies No known active [...] have money to get more. Never true [place] Depression Scale Answer Date Recorded [place] Depression Scale Total 21 06/29/2023 The thought [...] on file documented as of this encounter Plan of Treatment Upcoming Encounters Date Type Department Care Team (Late st Contact Info) Description 07/14/2023 11:00 AM EST Telemedicine [facility] [place] [address] [place] [address] Bouchra Dumont, [facility] [address] [place] [address] Pending Results Name Type Priority Associated Diagnoses Date /Time CBC WITH WBC DIFFERENTIAL AND ANEMIA REFLEX WORKUP Lab Routine Encounter for supervision of normal first in third trimester 06/29/2023 11:06 AM EST SYPHILIS ANTIBODY SCREEN WITH REFLEX TO RPR Lab Routine Encounter for supervision of normal first in third trimester 06/29/2023 11:06 AM EST 50-G GESTATIONAL GLUCOSE, 1 HOUR Lab Routine Encounter for supervision of normal first in third trimester 06/29/2023 11:06 AM EST ANEMIA CBC Lab Routine Encounter for supervision of normal first in third trimester 06/29/2023 11:06 AM EST DIFFERENTIAL, AUTOMATED Lab Routine Encounter for supervision of normal first in third trimester 06/29/2023 11:06 AM EST ANEMIA REFLEX CHEMISTRY HOLD Lab Routine Encounter for supervision of normal first in third trimester 06/29/2023 11:06 AM EST SYPHILIS ANTIBODY SCREEN Lab Routine Encounter for supervision of normal first in third trimester 06/29/2023 11:06 AM EST Health Maintenance Due Date Last Done Comments [...] supervision of normal first in third trimester Supervision of normal first documented in this encounter
--- OUTSIDE RECORDS SUMMARY | 2023-09-07 09:54 | External Medical Summary | Summary of Care ---
Author Name Unknown Organization [facility] Address [address] [place] [address] Phone [phone] Care Team Providers Care Rehabilitation Consultant Name Role Phone Unavailable Primary Care Provider Unavailabl e Reason for Visit * Reason Comments Anxiety Depression Encounter Details Date Type Department Care Team (Late st Contact Info) Description 07/14/2023 11:00 AM [facility] [address] [place], [place] [id number] Bouchra Dumont, [facility] [address] [place] [address] Major depressive disorder, recurrent episode, [...] Diagnosed Date Food insecurity 05/31/2023 Overview: Per [facility] Protocol , normal first 03/30/2023 [...] have money to get more. Never true [place] Depression Scale Answer Date Recorded [place] Depression Scale Total 21 06/29/2023 The thought [...] this encounter Progress Notes * Bouchra Dumont, MID LEVEL JAVA DEVELOPER - 07/14/2023 11:08 AM EST Patient location: HOME. I was not in a hospital or clinic location. After connecting through televideo, patient was verified with two unique identifiers. Patient (or authorized legal circulation representative) was then informed that this was a Telemedicine visit and being conducted confidentially over secure lines. Methods to assure confidentiality were taken. Patient acknowledged consent and understanding of privacy and security of the Telemedicine visit. The patient agreed to participate. Tomeka was at home in [place]. No one else was reported to be present. Residential address on [facility] verified to still beaccurate. My office door was closed. No one else was in the room with me. I informed the patient that I have reviewed their record in [facility] and presented the opportunity for them to ask any questions regarding the visit today. The patient agreed to participate. Provider reviewed elements of Outpatient Services Description including limits of confidentiality, how to contact the department, risks and benefits of treatment and consent for treatment. Start Time: 11:08a Stop Time: 12:00p Total direct ttee-hi-frwy time: 50 Minutes BEHAVIORAL MEDICINE PROGRESS NOTE [facility], [address] [address] 07/14/2023 11:08 AM TYPE OF VISIT: Individual [...] process with moving with her aunt in [place]. NOTES: Tomeka discussed finding a home for her boyfriend's dog and continuing with plans to move inwith her aunt in [place] as her boyfriend (father of unborn child) will be in long-term for an additional 8 months or so. She discussed recent conversation with him about her moving to [place] and being met with resistance and told [...] (range: 0 - 27) 10 (Moderate Depression) A-Qobc-Elfacoyi/Xtguid-Aavh-Pzbdpj Question 07/14/2023 11:11 AM EST - Filed [...] Suicide and Crisis Lifeline - 988 and [facility] for Help Signature Obtained on Treatment Plan Patient/ Family Received Copy of Treatment Plan Duration of Treatment Frequency of Treatment Patient unable to sign Treatment Plan acknowledgement document. Signature will be obtained at the time or before [facility] bulletin extension expires. Patient has access to [facility] 8-11 sessions every other week Patient Identified [...] an aunt and a cousin living in [place]." -willingness to engage in mental health services: Receptive to therapy -future-oriented thinking/planning: "Being a good mom." -coping/social/emotion regulation/self-soothing skills present: "Spending time with my dogs, if I feel stressed, I smoke a cigarette." -has cultural or latter-day beliefs that discourage suicide: "I do believe [...] Therapy Bouchra Dumont PsyD, LEXI, NCC, ACS, [facility] Division of Psychiatry & Behavioral Medicine [facility] [phone] documented in this encounter Plan of Treatment Upcoming Encounters Date Type Department Care Team (Late st Contact Info) Description 07/21/2023 11:30 AM EST Office Visit Gynecology/Obstetrics [facility] [address] [place] [address] Anastasiya Causey CRNP [address] [place] [address] 07/28/2023 11:00 AM EST Telemedicine [facility] [address] [place] [address] Bouchra Dumont LPC [address] [place] [address] Health Maintenance Due Date Last Done Comments [...]
--- OUTSIDE RECORDS SUMMARY | 2023-09-07 09:54 | External Medical Summary ---
Author Name Unknown Address Unknown Organization [id number]:LABORATORY [facility] [place] [place] - [address] [facility] [address] Laboratory Report Ordering Provider Test Date Status CARLOS WATTERS 06/29/2023 11:06:53 Final Observation Date Value Abnormality Reference (Units ) Status Treponema pallidum Ab [Presence] in Serum by Immunoassay 06/29/2023 11:06:53 Nonreactive Nonreactive Final No serologic evidence of syp hilis. No additional testing clinicially indicated at this time. Consider repeat testing in 2-4 weeks if acute or primary syphilis is suspected. Performing Location LAB[facility] [place] [place] [facility] [address] [facility] [address]
--- OUTSIDE RECORDS SUMMARY | 2023-09-07 09:54 | External Medical Summary ---
Author Name Unknown Address Unknown Organization [id number]:LABORATORY [place] [place] [address] - [address] [place] [address] Laboratory Report Ordering Provider Test Date Status CARLOS WATTERS 06/29/2023 11:06:53 Final Observation Date Value Abnormality Reference (Units ) Status Glucose [Moles/volume] in Serum or Plasma --1 hour post 50 g glucose PO 06/29/2023 11:06:53 101 70-129 (mg/dL) Final Performing Location LAB[facility]ORY [facility] [address] - [address] [place] [address]
--- OUTSIDE RECORDS SUMMARY | 2023-09-07 09:54 | External Medical Summary ---
Author Name Unknown Address Unknown Organization [id number]:LABORATORY [facility] [place] - [facility] [address] [place] [address] Laboratory Report Ordering Provider Test Date Status CARLOS WATTERS 06/29/2023 11:06:53 Final Observation Date Value Abnormality Reference (Units ) Status WBC, Total 06/29/2023 11:06:53 15.82 Above high normal 4 .00-10.80 (K/uL) Final RBC 06/29/2023 11:06:53 4.13 3.85-5.15 (M/uL) Final Hemoglobin 06/29/2023 11:06:53 12.6 12.0-15.3 (g/dL) Final Anemia reflex testing trigge rs on a HGB < 12.0 for Females and HGB < 13.0 for Males in accordance with the WHO Anemia Guidelines
Anemia reflex testing triggers on a HGB < 12.0 for Females and HGB < 13.0 for Males in accordance with the WHO Anemia Guidelines HCT 06/29/2023 11:06:53 38.8 36.0-45.2 (%) Final MCV 06/29/2023 11:06:53 93.9 81.5-97.5 (fL) Final MCH 06/29/2023 11:06:53 30.5 27.0-34.0 (pg) Final MCHC 06/29/2023 11:06:53 32.5 32.0-36.0 (g/dL) Final RDW 06/29/2023 11:06:53 12.6 11.5-15.5 (%) Final Platelets 06/29/2023 11:06:53 261 140-400 (K /uL) Final MPV 06/29/2023 11:06:53 11.5 6.6-11.1 ( fL) Final Nucleated erythrocytes/100 leukocytes [Ratio] in Blood by Automated count 06/29/2023 11:06:53 0 <=0 (/100 WBCs) Fi [facility] Performing Location LABORATORY [facility] [place] - [address] [facility] [address]
--- OUTSIDE RECORDS SUMMARY | 2023-09-07 09:54 | External Medical Summary | Summary of Care ---
Author Name Unknown Organization [facility] Address [address] [facility] [place] [address] Phone [phone] Care Team Providers Care Cyber Software Engineer Name Role Phone Unavailable Primary Care Provider Unavailabl e Encounter Details Date Type Department Care Team (Late st Contact Info) Description 08/09/2023 Telephone Gynecology/Obstetrics [facility] [address] [place] [address] Cathleen Hill PA-C [address] [place] [address] Allergies No known active allergiesdocumented as of this encounter (statuses as of 08/09/2023) Medications Medication Sig Dispensed Refills Start Date End Date Status Omeprazole Magnesium 20 MG Oral Tablet Delayed Release Take 1 Tablet by mouth in the morning. 0 Active Magnesium 400 MG Oral Capsule Take 1 Capsule by mouth in the morning. 0 Active 28-0.8 MG Oral Tablet Take by mouth. 0 Active documented as of this encounter (statuses as of 08/09/2023) Active Problems Problem Noted Date Diagnosed Date Food insecurity 05/31/2023 Overview: Per [facility] Protocol , normal first 03/30/2023 Family history of gastroschisis 03/30/2023 Overview: Pt's half sister History of gynecologic surgery 03/30/2023 Overview: Hx labioplasty, desires primary C/S Tobacco smoking complicating 3 Depression complicating , antepartum Estimated Date of Delivery Comme nts Yes 09/09/2023 Based on last me nstrual period of 12/03/2022 documented as of this encounter (statuses as of 08/09/2023) Social History Tobacco Use Types Packs/Day Years [...] have money to get more. Never true [place] Depression Scale Answer Date Recorded [place] Depression Scale Total 21 06/29/2023 The thought [...] encounter Miscellaneous Notes * Telephone Encounter - Chantel Nath RN - 08/09/2023 10:03 AM EST Patient calling in states that she was previously seeing use for care but then she moved. She recently moved back and needs to schedule a appointment. States she was never seen anywhere when she moved for care as they did not have any appointments. Patient denies any concerns at this time. She is now about 35w. Patient scheduled for first available appt (30 minutes since she hasn't been seen in so long). Noted in Previous OV note that she was interested in primary C section. Patient now states she isn't sure about this. Advised patient that she needs to call triage number with any concerning sx, bleeding, leaking, contractions Q 5 minutes, DFM. Patient ve rbalized understanding. documented in this encounter Plan of Treatment Upcoming Encounters Date Type Department Care Team (Matt gomez Contact Info) Description 08/16/2023 8:30 AM EST Office Visit Gynecology/Obstetrics [facility] [address] [place] [address] Cathleen Hill PA-C [address] [place] [address] Health Maintenance Due Date Last Done Comments [...]
--- OUTSIDE RECORDS SUMMARY | 2023-09-07 09:54 | External Medical Summary | Summary of Care ---
Author Name Unknown Organization [facility] [address] [place] [address] Phone [phone] Care Team Providers Care Diesel Service Journeyman Name Role Phone Unavailable Primary Care Provider Unavailabl e Encounter Details Date Type Department Care Team (Late st Contact Info) Description 06/30/2023 Telephone Gynecology/Obstetrics [facility] [address] [facility] [place] [address] Russell Montgomery MD [address] [place] [address] Allergies No known active allergiesdocumented as of this encounter (statuses as of 07/01/2023) Medications Medication Sig Dispensed Refills Start Date End Date Status Omeprazole Magnesium 20 MG Oral Tablet Delayed Release Take 1 Tablet by mouth in the morning. 0 Active Magnesium 400 MG Oral Capsule Take 1 Capsule by mouth in the morning. 0 Active 28-0.8 MG Oral Tablet Take by mouth. 0 Active documented as of this encounter (statuses as of 07/01/2023) Active Problems Problem Noted Date Diagnosed Date [...] as of this encounter (statuses as of 07/01/2023) Social History Tobacco Use Types Packs/Day Years [...] have money to get more. Never true [place] Depression Scale Answer Date Recorded [place] Depression Scale Total 21 06/29/2023 The thought [...] Description 07/14/2023 11:00 AM EST Telemedicine Psychology, [place] [address] [place] [address] Bouchra Dumont, HEAD OF HOUSEKEEPING [address] [place] [address] 07/21/2023 11:30 AM EST Office Visit Gynecology/Obstetrics [facility] [address] [facility] [place] [address] Anastasiya Causey CRNP [address] [place] [address] Health Maintenance Due Date Last Done Comments [...]
--- OUTSIDE RECORDS SUMMARY | 2023-09-07 09:54 | External Medical Summary | Summary of Care ---
Author Name Unknown Organization [facility] Address [address] [facility] [place] [address] Phone [phone] Care Team Providers Care Stove Carriage Operator Name Role Phone Unavailable Primary Care Provider Unavailabl e Encounter Details Date Type Department Care Team (Late st Contact Info) Description 07/20/2023 Telephone Gynecology/Obstetrics [facility] [address] [place] [address] Nisa Porras CRNP [address] [place] [address] Allergies No known active allergiesdocumented as of this encounter (statuses as of 07/20/2023) Medications Medication Sig Dispensed Refills Start Date End Date Status Omeprazole Magnesium 20 MG Oral Tablet Delayed Release Take 1 Tablet by mouth in the morning. 0 Active Magnesium 400 MG Oral Capsule Take 1 Capsule by mouth in the morning. 0 Active 28-0.8 MG Oral Tablet Take by mouth. 0 Active documented as of this encounter (statuses as of 07/20/2023) Active Problems Problem Noted Date Diagnosed Date Food insecurity 05/31/2023 Overview: Per [facility] Protocol , normal first 03/30/2023 Family history of gastroschisis 03/30/2023 Overview: Pt's half sister History of gynecologic surgery 03/30/2023 Overview: Hx labioplasty, desires primary C/S Tobacco smoking complicating 3 Depression complicating , antepartum Estimated Date of Delivery Comme nts Yes 09/09/2023 Based on last me nstrual period of 12/03/2022 documented as of this encounter (statuses as of 07/20/2023) Social History Tobacco Use Types Packs/Day Years [...] have money to get more. Never true [place] Depression Scale Answer Date Recorded [place] Depression Scale Total 21 06/29/2023 The thought [...] Telephone Encounter - Chantel Nath RN - 07/20/2023 9:39 AM EST Patient calling In. States she moved to [place], [facility]. Patient requesting records be faxed to them at [phone]. Release of records of file. episode faxed per patient request. documented in this encounter Plan of Treatment Health Maintenance Due Date Last Done Comments [...]
--- OUTSIDE RECORDS SUMMARY | 2023-09-07 09:54 | External Medical Summary | Summary of Care ---
Author Name Unknown Organization [facility] Address [address] [place] [address] Phone [phone] Care Team Providers Care Jetting Machine Operator Name Role Phone Unavailable Primary Care Provider Unavailabl e Reason for Visit * Reason Comments Anxiety Depression Encounter Details Date Type Department Care Team (Late st Contact Info) Description 06/17/2023 1:30 PM [facility] [address], [place] [id number] Bouchra Dumont, [facility] [address] [place] [address] Major depressive disorder, recurrent episode, moderate (HCC)*; PIPO (generalized anxiety disorder); PTSD (post-traumatic stress disorder) Allergies No known active allergiesdocumented as of this encounter (statuses as of 06/17/2023) Medications Medication Sig Dispensed Refills Start Date End Date Status Omeprazole Magnesium 20 MG Oral Tablet Delayed Release Take 1 Tablet by mouth in the morning. 0 Active Magnesium 400 MG Oral Capsule Take 1 Capsule by mouth in the morning. 0 Active 28-0.8 MG Oral Tablet Take by mouth. 0 Active documented as of this encounter (statuses as of 06/17/2023) Active Problems Problem Noted Date Diagnosed Date Food insecurity 05/31/2023 Overview: Per [facility] Protocol , normal first 03/30/2023 Family history of gastroschisis 03/30/2023 Overview: Pt's half sister History of gynecologic surgery 03/30/2023 Overview: Hx labioplasty, desires primary C/S Tobacco smoking complicating 09/12/202 3 Depression complicating , antepartum Estimated Date of Delivery Comme nts Yes 09/09/2023 Based on last me nstrual period of 12/03/2022 documented as of this encounter (statuses as of 06/17/2023) Social History Tobacco Use Types Packs/Day Years Used Date Smoking Tobacco: Every Day Cigarettes 0.3 Smokeless Tobacco: Never Alcohol Use Standard Drinks/Week Comments Not Currently 0 (1 standard drink = 0.6 oz pur e alcohol) PHQ-2 Answer Date Recorded PHQ Adult Total Score 9 06/17/2023 Hunger Vital Sign Answer Date Recorded Within the past 12 months, y ou worried that your food would run out before you got the money to buy more. Sometimes true Within the past 12 months, t he food you bought just didn't last and you didn't have money to get more. Never true [place] Depression Scale Answer Date Recorded [place] Depression Scale Total 24 04/30/2023 The thought [...] this encounter Progress Notes * Bouchra Dumont, MUSIC DEPARTMENT CHAIR - 06/17/2023 1:35 PM EST Patient location: HOME. I was not in a hospital or clinic location. After connecting through televideo, patient was verified with two unique identifiers. Patient (or authorized legal signs sales representative) was then informed that this was a Telemedicine visit and being conducted confidentially over secure lines. Methods to assure confidentiality were taken. Patient acknowledged consent and understanding of privacy and security of the Telemedicine visit. The patient agreed to participate. Tomeka was at home in [place]. No one else was reported to be present. Residential address on [facility] verified to still beaccurate. My office door was closed. No one else was in the room with me. I informed the patient that I have reviewed their record in Teleport and presented the opportunity for them to ask any questions regarding the visit today. The patient agreed to participate. Provider reviewed elements of Outpatient Services Description including limits of confidentiality, how to contact the department, risks and benefits of treatment and consent for treatment. Start Time: 1:35p Stop Time: 2:25p Total direct [id number] time: 50 Minutes BEHAVIORAL MEDICINE PROGRESS NOTE [facility], [address] [address] 06/17/2023 1:35 PM TYPE OF VISIT: Individual DIAGNOSIS: Major depressive disorder, recurrent, moderate [F33.1], Generalized anxiety disorder [F41.1], Post-traumatic stress disorder, unspecified [F43.10] REASON FOR FOLLOW-UP: Individual therapy Session #: 2 SESSION FOCUS: Session focused on sx of anxiety, depression, and Tomeka's coping ability. PHQ9 & GAD7 screeners completed and reviewed along with prior screener(s). It was noted that sx of anxiety remain in moderate range, and depressive sx decreased to mild range on today's screener. Tomeka provided additional information since initial evaluation and discussed ongoing stressors. NOTES: Tomeka attended session on time and was well-engaged. She was happy to report a neighbor invited her to spend the holiday with them and she had a good time. Tomeka discussed financial challenges and hoping she will receive money from a loan to pay rent arrears. She also reportedexploring her options and whether it will be best to move with her aunt in [place], [place]. She discussed prior relationship and how feelings of anxiety stemming from preoccupation about her ex-'swell-being due to reported drug addiction subsided since learning from a friend he is doing ok. Sheadded she still has not found full closure and does not know why. She referenced being told that she experiences "trauma bonding" with ex-relationship. Psycho-education on establishing healthy boundaries and the different types of boundaries was provided and discussed. Tomeka identified she often cares much about others and less about herself. Applying self-care and self-compassion was also discussed and how keeping healthy boundaries is an aspect of self-care and maintaining a balanced wellness. Tomeka inquired what will happen if she moves to [place] with her aunt by the next appt. Therapist explained she cannot continue therapy if she moves out of [place] and encouraged her to communicate via Teleportif she will not be attending next appt. Information on self-compassion sent via Navdy. PROGRESS TOWARDS GOALS: She attended on time and was well-engaged. She started exploring hx of PTSDand increasing insight into unhelpful thinking styles that leads her to feel anxious and depressed. Goal: Improved self-management of anxiety, depression, PTSD, and Tomeka's ability to cope with personal stressors. Objective Measures: Pipo-7 Question 06/17/2023 12:59 PM EST - Filed by Patient Over the last 2 weeks, how often have you been bothered by the following problems? Feeling nervous, anxious, or on edge Several days Not being able to stop or control worrying Nearly every day Worrying too much about different things Nearly every day Trouble relaxing Several days Being so restless that is hard to sit still Several days Becoming easily annoyed or irritable Several days Feeling afraid as if something awful might happen Several days Total score of all questions (range: 0 - 21) 11 (Moderate) Myc Visit Accident Related Question Question 06/17/2023 1:00 PM EST - Filed by Patient Is this visit related to an accident? (i.e work, motor vehicle) No Phq9-Depression Question 06/17/2023 1:40 PM EST - Filed by Bouchra Dumont [facility] Over the last two weeks, how often have you been bothered by any of the following problems? Little interest or pleasure in doing things Several days Feeling down, depressed or hopeless More than half the days Over the last two weeks, how [...] Question 2 score (range: 0 - 3) 2 Question 3 score (range: 0 - 3) [...] all PHQ9 questions. (range: 0 - 27) 9 (Mild Depression) O-Pelc-Uamfcyig/Wpjolz-Pzmv-Ezbotr Question 06/17/2023 1:40 PM EST - Filed by Bouchra Dumont [...] the event of a crisis: Family Member: Dinoraht Jessica Additional resources I can utilize if the previous steps are ineffective (e.g: ED, hotlines): Suicide and Crisis [facility] - 9[address] and [employer] for Help Signature Obtained on Treatment Plan Patient/ Family Received Copy of Treatment Plan Duration of Treatment Frequency of Treatment Patient unable to sign Treatment Plan acknowledgement document. Signature will be obtained at the time or before [facility] bulletin extension expires. Patient has access to [facility] 8-11 sessions every other week Patient Identified [...] an aunt and a cousin living in [place]." -willingness to engage in mental health services: Receptive to therapy -future-oriented thinking/planning: "Being a good mom." -coping/social/emotion regulation/self-soothing skills present: "Spending time with my dogs, if I feel stressed, I smoke a cigarette." -has cultural or yarsani beliefs that discourage suicide: "I do believe that everything happen for a reason." Risk Level Impression: -Low risk: Continue outpatient therapy; safety plan may still be indicated; provided crisis numbers -No change in risk from last session (see note dated 05/28/23 for further details) FOLLOW-UP PLAN: Return: 2 weeks on 08/29 @ 1:30p. Action Plan: 1. Continue Individual Cognitive Behavioral Therapy Bouchra Dumont PsyD, LEXI, NCC, ACS, -[facility] Division of Psychiatry & Behavioral Medicine [facility] [phone] documented in this encounter Plan of Treatment Upcoming Encounters Date Type Department Care Team (Late st Contact Info) Description 06/28/2023 1:30 PM EST Telemedicine [facility] [address] [place] [address] Bouchra Dumont LPC [address] [place] [address] 06/29/2023 10:00 AM EST Laboratory Laboratory, [facility] [address] [place] [id number] [facility] [address] [place] [address] 06/29/2023 10:15 AM EST Office Visit Gynecology/Obstetrics [facility] [address] [place] [address] Nisa Porras CRNP [address] [place] [address] Health Maintenance Due Date Last Done Comments Hepatitis B (1 of 3 - 3-dose series) 1989 COVID-19 Vaccine (#1) 1989 Pneumococcal Vaccine: Pediat rics (0 to 5 Years) and At-Risk Patients (6 to 64 Years) (1 - PCV) 1995 DTaP,Tdap,and Td Vaccines (1 - Tdap) 2008 Pap Smear 2010 Cervical Cancer Screening 2019 HPV/Co-Test 2019 Influenza Vaccine (FLU shot) (#1) 2023 Depression Screening 05/28/2024 06/17/2023 GARDASIL-HPV IMMUNIZATION SERIES Aged Out No [...]
--- OUTSIDE RECORDS SUMMARY | 2023-09-07 09:54 | External Medical Summary | Summary of Care ---
Author Name Unknown Organization [facility] Address [address] [place] [address] Phone [phone] Care Team Providers Care Construction Project Mgr Name Role Phone Unavailable Primary Care Provider Unavailabl e Reason for Visit * Reason Comments Completion Of Treatment Encounter Details Date Type Department Care Team ([facility] st Contact Info) Description 07/21/2023 Documentation [facility], [place] [address] [place] [address] Bouchra Dumont, [facility] [address] [place] [address] Allergies No known active allergiesdocumented as of this encounter (statuses as of 07/21/2023) Medications Medication Sig Dispensed Refills Start Date End Date Status Omeprazole Magnesium 20 MG Oral Tablet Delayed Release Take 1 Tablet by mouth in the morning. 0 Active Magnesium 400 MG Oral Capsule Take 1 Capsule by mouth in the morning. 0 Active 28-0.8 MG Oral Tablet Take by mouth. 0 Active documented as of this encounter (statuses as of 07/21/2023) Active Problems Problem Noted Date Diagnosed Date Food insecurity 05/31/2023 Overview: Per [facility] Protocol , normal first 03/30/2023 Family history of gastroschisis 03/30/2023 Overview: Pt's half sister History of gynecologic surgery 03/30/2023 Overview: Hx labioplasty, desires primary C/S Tobacco smoking complicating 3 Depression complicating , antepartum Estimated Date of Delivery Comme nts Yes 09/09/2023 Based on last me nstrual period of 12/03/2022 documented as of this encounter (statuses as of 07/21/2023) Social History Tobacco Use Types Packs/Day Years [...] money to get more. Never true [place] Depression Scale Answer Date Recorded [place] Depression Scale Total 21 06/29/2023 The thought [...] this encounter Progress Notes * Bouchra Dumont, CRYSTAL GROWER - 07/21/2023 12:35 PM EST THERAPY/PSYCHOLOGY DISCHARGE SUMMARY 1. Summary of Services provided: Individual Therapy 2. Outcomes and referrals: Patient elected to postpone or discontinue treatment at this time. As per medical note dated 07/20/23, patient called in informing medical dept that she moved to [place] and is seeking medical care in [facility]. 3. Relevant psychosocial status: problems with primary support group: relationship stressors, occupational problems: unemployed, housing problems & economic problems: financial problems, problemsrelated to interaction with legal system/crime: boyfriend/father of unborn child in [place], other psychosocial and environmental problems: anxiety, depression, PTSD. Patient stable Plan of care at time of discharge including referrals: Use crisis plan as needed Can consult us in the future as clinically indicated Patient and/or family has access to this document through Charline Dumont PsyD, CRYSTAL GROWER, NCC, ACS, [facility] Division of Psychiatry & Behavioral Medicine [facility] [phone] documented in this encounter Plan of Treatment [...]
--- OUTSIDE RECORDS SUMMARY | 2023-09-07 09:54 | External Medical Summary ---
Author Name Unknown Address Unknown Organization K01:LABORATORY [facility] - [address] [facility] [id number] Laboratory Report Ordering Provider Test Date Status CARLOS WATTERS 06/29/2023 11:06:53 Final Observation Date Value Abnormality Reference (Units ) Status SYNC LEUKOCYTES IN BLOOD BY AUTOMATED COUNT 06/29/2023 11:06:53 15.82 Above high normal 4.00-10.80 (K/uL) Final Segs 06/29/2023 11:06:53 84.5 Above high normal 40.0-75.0 (%) Final Lymphs % 06/29/2023 11:06:53 8.8 Below low normal 18.0-42.0 (%) Final Monos 06/29/2023 11:06:53 5.2 1.0-11.0 (%) Final Eosinophils 06/29/2023 11:06:53 0.2 0.0-6.0 (%) Final Basos 06/29/2023 11:06:53 0.3 0.0-2.0 (%) Final Immature Granulocyte, Percent 06/29/2023 11:06:53 1.0 0.0-2.0 (%) Final Absolute Segs 06/29/2023 11:06:53 13.37 Above high normal 1.80-7.70 (K/uL) Final Lymphs, absolute 06/29/2023 11:06:53 1.39 1.00-4.80 (K/ul) Final Monos, Abs 06/29/2023 11:06:53 0.83 0.00-1.10 (K/uL) Final Eos, Abs 06/29/2023 11:06:53 0.03 0.00-0.70 (K/uL) Final Basos, Abs 06/29/2023 11:06:53 0.04 0.00-0.20 (K/uL) Final Immature Granulocytes, Number 06/29/2023 11:06:53 0.16 0.00-0.20 (K/uL) Final Performing Location [facility]ATORY [facility] - [facility] [address] [facility] [address]
--- OUTSIDE RECORDS SUMMARY | 2023-09-07 09:54 | External Medical Summary | Summary of Care ---
Author Name Unknown Organization [facility] Address [address] [place] [address] Phone [phone] Care Team Providers Care Tow Motor Mechanic Name Role Phone Unavailable Primary Care Provider Unavailabl e Reason for Visit * Reason Onset Date Comments Test Results 04/07/2023 Encounter Details Date Type Department Care Team ([facility] Contact Info) Description 04/07/2023 Telephone Access Center, [place] [address] *DO NOT REMOVE THIS DEPARTMENT* [place], [place] [id number] Services, Scheduling [address] [place] [address] Test Results Allergies No known active allergiesdocumented as of this encounter (statuses as of 07/07/2023) Medications Medication Sig Dispensed Refills Start Date End Date Status Omeprazole Magnesium 20 MG Oral Tablet Delayed Release Take 1 Tablet by mouth in the morning. 0 Active Magnesium 400 MG Oral Capsule Take 1 Capsule by mouth in the morning. 0 Active 28-0.8 MG Oral Tablet Take by mouth. 0 Active documented as of this encounter (statuses as of 07/07/2023) Active Problems Problem Noted Date Diagnosed Date Food insecurity 05/31/2023 Overview: Per [facility] Protocol , normal first 03/30/2023 Family history of gastroschisis 03/30/2023 Overview: Pt's half sister History of gynecologic surgery 03/30/2023 Overview: Hx labioplasty, desires primary C/S Tobacco smoking complicating 3 Depression complicating , antepartum Estimated Date of Delivery Comme nts Yes 09/09/2023 Based on last me nstrual period of 12/03/2022 documented as of this encounter (statuses as of 07/07/2023) Social History Tobacco Use Types Packs/Day Years [...] have money to get more. Never true [place] Depression Scale Answer Date Recorded [place] Depression Scale Total 21 06/29/2023 The thought [...] encounter Miscellaneous Notes * Telephone Encounter - Anastasiya Causey CRNP - 04/08/2023 1:37 PM EDT MyG was sent to pt earlier today with this information. GAIL Pickens * Telephone Encounter - Chantel Nath RN - 04/08/2023 1:35 PM EDT Patient is calling in asking about results for maternal serum AFP. * Telephone Encounter - Fabricio Gonzalez OSA - 04/07/2023 4:40 PM EDT Who is Requesting Test Results: Pt Primary Care Provider : No primary care provider on file. Tests Results Requested : Lab- Maternal Serum AFP Date of Test : 03/30 Location of Test: [facility] Ordering Provider: Anastasiya REYNOLDS Callback Number: [phone] Patient has been made aware that the turnaround time for test results are typically as follows: Laboratory results = within 2 days Urine Cultures = within 2-3 days depending on growth within the culture Pathology results (biopsy results/PAP) = 1-2 weeks Radiology results = within 1 week Cologuard results = within 2 weeks from the shipment date COVID testing = results are on average 7 days documented in this encounter Plan of Treatment Upcoming Encounters Date Type Department Care Team (Late st Contact Info) Description 07/14/2023 11:00 AM EST Telemedicine [facility], [place] [address] [place] [address] Bouchra Dumont, [facility] [address] [place] [address] 07/21/2023 11:30 AM EST Office Visit Gynecology/Obstetrics [place] [address] [facility] [place] [address] Anastasiya Causey CRNP [address] [facility] [place] [address] Health Maintenance Due Date Last Done Comments [...]
--- OUTSIDE RECORDS SUMMARY | 2023-09-07 09:54 | External Medical Summary | Summary of Care ---
Author Name Unknown Organization [facility] Address [address] [facility] [place] [address] Phone [phone] Care Team Providers Care Hose Operator Name Role Phone Unavailable Primary Care Provider Unavailabl e Reason for Visit * Reason Onset Date Comments Back Pain 06/11/[address] Rascon Encounter Details Date Type Department Care Team ([facility] st Contact Info) Description 06/11/2023 Telephone [facility] [address] [place] [address] Cely Nielsen MD [address] [place] [id number] Back Pain (Review with Dr. Rascon) Allergies No known active allergiesdocumented as of this encounter (statuses as of 06/11/2023) Medications Medication Sig Dispensed Refills Start Date End Date Status Omeprazole Magnesium 20 MG Oral Tablet Delayed Release Take 1 Tablet by mouth in the morning. 0 Active Magnesium 400 MG Oral Capsule Take 1 Capsule by mouth in the morning. 0 Active 28-0.8 MG Oral Tablet Take by mouth. 0 Active documented as of this encounter (statuses as of 06/11/2023) Active Problems Problem Noted Date Diagnosed Date Food insecurity 05/31/2023 Overview: Per [facility] Protocol , normal first 03/30/2023 Family history of gastroschisis 03/30/2023 Overview: Pt's half sister History of gynecologic surgery 03/30/2023 Overview: Hx labioplasty, desires primary C/S Tobacco smoking complicating 3 Depression complicating , antepartum Estimated Date of Delivery Comme nts Yes 09/09/2023 Based on last me nstrual period of 12/03/2022 documented as of this encounter (statuses as of 06/11/2023) Social History Tobacco Use Types Packs/Day Years Used Date Smoking Tobacco: Every Day Cigarettes 0.3 Smokeless Tobacco: Never Alcohol Use Standard Drinks/Week Comments Not Currently 0 (1 standard drink = 0.6 oz pur e alcohol) PHQ-2 Answer Date Recorded PHQ Adult Total Score 9 05/28/2023 Hunger Vital Sign Answer Date Recorded Within the past 12 months, y ou worried that your food would run out before you got the money to buy more. Sometimes true Within the past 12 months, t he food you bought just didn't last and you didn't have money to get more. Never true [place] Depression Scale Answer Date Recorded [place] Depression Scale Total 24 04/30/2023 The thought [...] Telephone Encounter - Chantel Nath RN - 06/11/2023 1:40 PM EST Patient called and made aware. She verbalized understanding. * Telephone Encounter - Chantel Nath RN - 06/11/2023 1:35 PM EST Attempted to call patient. No answer, LVM to return call. * Telephone Encounter - Cely Nielsen MD - 06/11/2023 1:28 PM EST Agree Thanks * Telephone Encounter - Chantel Nath RN - 06/11/2023 10:55 AM EST Patient calling in c/o back pain. 27w1d . Denies vaginal bleeding/leaking contractions. + FM. Denies uti sx. Tried Tylenol, no relief. Has been trying exercises and stretching at home to helpwith no improvement. Advised patient to try warm compress for a couple minutes at a time, frequent p osition changes and pushing fluids. Continue Tylenol as needed and monitor for any new/worsening concerns. Patient verbalized understanding. Please review/advise further. documented in this encounter Plan of Treatment Upcoming Encounters Date Type Department Care Team (Late st Contact Info) Description 06/17/2023 1:30 PM EST Telemedicine [facility], [place] [address] [place] [address] Bouchra Dumont, [facility] [address] [place] [address] 06/29/2023 10:00 AM EST [facility] [address] [facility] [place] [id number] [facility] [address] [facility] [place] [address] 06/29/2023 10:15 AM EST Office Visit Gynecology/Obstetrics [facility] [address] [facility] [place] [address] Nisa Porras CRNP [address] [facility] [place] [address] Health Maintenance Due Date Last Done Comments [...] (FLU shot) (#1) 2023 Depression Screening 05/28/2024 05/28/2023 GARDASIL-HPV IMMUNIZATION SERIES Aged Out No longer eligible based on patient's age to complete this topic MENINGOCOCCAL (MENACTRA/MENVEO) Aged Out No longer eligible based on patient's age to complete this topic documented as of this encounter Medical Devices Not on filedocumented as of this encounter
--- OUTSIDE RECORDS SUMMARY | 2023-09-07 09:54 | External Medical Summary | Summary of Care ---
Author Name Unknown Organization [facility] Address [address] [place] [address] Phone [phone] Care Team Providers Care Representative Name Role Phone Unavailable Primary Care Provider Unavailabl e Reason for Visit * Reason Comments Completion Of Treatment Encounter Details Date Type Department Care Team ([facility] st Contact Info) Description 07/21/2023 Documentation [facility], [place] [address] [place] [address] Bouchra Dumont, [facility] [address] [place] [address] Allergies No known active allergiesdocumented [...] Diagnosed Date Food insecurity 05/31/2023 Overview: Per [facility] Protocol , normal first 03/30/2023 [...] have money to get more. Never true [place] Depression Scale Answer Date Recorded [place] Depression Scale Total 21 06/29/2023 The thought [...] this encounter Progress Notes * Bouchra Dumont, CHROME PLATER - 07/21/2023 12:35 PM EST THERAPY/PSYCHOLOGY DISCHARGE SUMMARY 1. Summary of Services provided: Individual Therapy 2. Outcomes and referrals: Patient elected to postpone or discontinue treatment at this time. As per medical note dated 07/20/23, patient called in informing medical dept that she moved to [place] and is seeking medical care in [facility]. 3. Relevant psychosocial status: problems with [...] to this document through Charline Dumont PsyD, CHROME PLATER, NCC, ACS, [facility] Division of Psychiatry & Behavioral Medicine [facility] [phone] documented in this encounter Plan of Treatment [...]
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
--- OUTSIDE RECORDS SUMMARY | 2023-09-07 09:55 | External Medical Summary | Summary of Care ---
Author Name Unknown Organization [facility] Address [address] [place] [address] Phone [phone] Care Team Providers Care Roofer Applicator Name Role Phone Unavailable Primary Care Provider Unavailabl e Reason for Visit * Reason Comments Return Visit Encounter Details Date Type Department Care Team Description 03/30/2023 Office Visit Gynecology/Obstetrics [facility] [address] [place] [address] Anastasiya Causey CRNP [address] [place] [address] Encounter for supervision of normal first in second trimester*; Family history of gastroschisis; History of gynecologic surgery; Tobacco smoking affecting in second trimester; Depression complicating , antepartum Allergies No known active allergiesdocumented as of this encounter (statuses as of 03/30/2023) Medications Medication Sig Dispensed Refills Start Date End Date Status Omeprazole Magnesium 20 MG Oral Tablet Delayed Release Take 1 Tablet by mouth in the morning. 0 Active Magnesium 400 MG Oral Capsule Take 1 Capsule by mouth in the morning. 0 Active 28-0.8 MG Oral Tablet Take by mouth. 0 Active Sertraline HCl 50 MG Oral Tablet (Zoloft)Indication s:Depression complicating , antepartum Take 0.5 Tablets by mouth every evening. For 2 weeks then increase to 50 mg (1 tab) daily after. 30 Tablet 1 02/05/2023 3 Discontinued documented as of this encounter (statuses as of 03/30/2023) Active Problems Problem Noted Date , normal [...] as of this encounter (statuses as of 03/30/2023) Social History Tobacco Use Types Packs/Day Years Used Date Smoking Tobacco: Every Day Cigarettes 0.3 Smokeless Tobacco: Never Alcohol Use Standard Drinks/Week Comments Not Currently 0 (1 standard drink = 0.6 oz pur e alcohol) Food Insecurity Answer Date Recorded Within the past 12 months, y ou worried that your food would run out before you got money to buy more. Never true 02/05/2023 Within the past 12 months, t he food you bought just didn't last and you didn't have money to get more. Never true 02/05/2023 Estimated Date of Delivery Comme nts Yes 09/09/2023 Based on last me nstrual period of 12/03/2022 Sex Assigned at Date Recorded Female 01/22/2023 9:07 AM E DT Job Start Date Occupation Industry Not on file Not on file Not on file documented as of this encounter Last Filed Vital Signs Vital Sign Reading Time Taken Comments Blood Pressure 104/62 03/30/2023 11:26 AM EDT Pulse - - Temperature - - Respiratory Rate - - Oxygen Saturation - - Inhaled Oxygen Concentration - - Weight 58.5 kg (129 lb) 03/30/2023 11:26 AM EDT Height 157.5 cm (5' 2") 03/30/2023 11:26 AM EDT Body Mass Index 23.59 03/30/2023 11:26 AM EDT documented in this encounter Progress Notes * GAIL Reilly - 03/30/2023 11:42 AM EDT 16w 5d. No movement yet. Some mild cramping. No further bleeding/brown discharge. Discussed Qnatal and MSAFP, orders placed. Recommend checking insurance coverage for testing. AwareMSAFP should be done prior to 23 weeks. Discussed turnaround time for testing. Not taking Zoloft - states mood varies, looking into therapy. Does not wish to take meds now. Recommend flu vaccine due to increased risk of complications of flu with - declines. Anatomy scan with next visit. GAIL Pickens * Susie Ayers LPN - 03/30/2023 11:29 AM EDT 16w5d +GAMEZ. Was having some dark brown spotting that has resolved. documented in this encounter Plan of Treatment Upcoming Encounters Date Type Specialty Care Team Description 03/30/2023 Laboratory Laboratory [place] [address] [place] [address] 04/30/2023 Imaging Radiology 04/30/2023 Office Visit Gynecology Obstetrics Cathleen Hill PA-C [address] [place] [address] Scheduled Orders Name Type Priority Associated Diagnoses Orde r Schedule US PREG SINGLE/1ST GEST, 14 WEEKS OR LATER Medical Imaging Routine Encounter for supervision of normal first in second trimester Expected: 04/29/2023 (Approximate), Expires: 04/29/2024 QNATAL ADVANCED ([facility]) Lab Routine Encounter for supervision of normal first in second trimester Expected: 03/30/2023 (Approximate), Expires: 03/30/2024 MATERNAL SERUM AFP Lab Routine Encounter for supervision of normal first in second trimester Expected: 03/30/2023 (Approximate), Expires: 03/30/2024 Health Maintenance Due Date Last Done Comments Hepatitis B (1 of 3 - 3-dose series) 1989 COVID-19 Vaccine (#1) 1989 Pneumococcal Vaccine: Pediatrics (0 to 5 Years) and At-Risk Patients (6 to 64 Years) (1 - PCV) 1995 Depression Screening 2001 DTaP,Tdap,and Td Vaccines (1 - Tdap) 2008 Pap Smear 2010 Cervical Cancer Screening 2019 HPV/Co-Test 2019 Influenza Vaccine (FLU shot) (#1) 2023 Hepatitis C Screening Completed 02/05/2023 , 02/05/2023, 02/05/2023 GARDASIL-HPV IMMUNIZATION SERIES Aged Out No longer eligible b ased on patient's age to complete this topic MENINGOCOCCAL (MENACTRA/MENVEO) Aged Out No longer eligible b ased on patient's age to complete this topic documented as of this encounter Medical Devices Not on filedocumented as of this encounter Visit Diagnoses Diagnosis Encounter for supervision of normal first in second trimester- Primary Supervision of normal first Family history of gastroschisis Family history of other condition History of gynecologic surgery Personal history of surgery to other organs Tobacco smoking affecting in second trimester Depression complicating , antepartum Mental disorders of mother, antepartum documented in this encounter
--- OUTSIDE RECORDS SUMMARY | 2023-09-07 09:55 | External Medical Summary | Summary of Care ---
Author Name Unknown Organization [facility] Address [address] [facility] [place] [address] Phone [phone] Care Team Providers Care Learning Officer Name Role Phone Unavailable Primary Care Provider Unavailabl e Reason for Visit * Reason Onset Date Comments Back Pain 06/11/[address] Rascon Encounter Details Date Type Department Care Team ([facility] st Contact Info) Description 06/11/2023 [facility] [address] [place] [address] Cely Nielsen MD [address] [place] [id number] Back Pain (Review with Dr. Rascon) Allergies [...] Diagnosed Date Food insecurity 05/31/2023 Overview: Per [facility] Protocol , normal first 03/30/2023 [...] have money to get more. Never true [place] Depression Scale Answer Date Recorded [place] Depression Scale Total 24 04/30/2023 The thought [...] Info) Description 06/17/2023 1:30 PM EST Telemedicine [facility] [place] [address] [place] [address] Bouchra Dumont [facility] [address] [place] [address] 06/29/2023 10:00 AM EST Laboratory [facility] [address] [facility] [id number] [facility] [address] [facility] [place] [address] 06/29/2023 10:15 AM EST Office Visit [facility] [place] [address] Nisa Porras CRNP [address] [facility] [address] Health Maintenance Due Date Last Done Comments [...]
--- OUTSIDE RECORDS SUMMARY | 2023-09-07 09:55 | External Medical Summary | Summary of Care ---
Author Name Unknown Organization [facility] Address [address] [place] [address] Phone [phone] Care Team Providers Care Expanded Function Dental Assistant Name Role Phone Unavailable Primary Care Provider Unavailabl e Reason for Visit * Reason Comments Anxiety Depression Encounter Details Date Type Department Care Team ([facility] st Contact Info) Description 05/28/2023 1:30 PM [facility] [address], [place] [id number] Bouchra Dumont, [facility] [address] [place] [address] Major depressive disorder, recurrent episode, moderate (HCC)*; PIPO (generalized anxiety disorder); PTSD (post-traumatic stress disorder) Allergies No known active allergiesdocumented as of this encounter (statuses as of 05/28/2023) Medications Medication Sig Dispensed Refills Start Date End Date Status Omeprazole Magnesium 20 MG Oral Tablet Delayed Release Take 1 Tablet by mouth in the morning. 0 Active Magnesium 400 MG Oral Capsule Take 1 Capsule by mouth in the morning. 0 Active 28-0.8 MG Oral Tablet Take by mouth. 0 Active documented as of this encounter (statuses as of 05/28/2023) Active Problems Problem Noted Date Diagnosed Date , normal first 03/30/2023 Family history of gastroschisis 03/30/2023 Overview: Pt's half sister History of gynecologic surgery 03/30/2023 Overview: Hx labioplasty, desires primary C/S Tobacco smoking complicating 3 Depression complicating , antepartum Estimated Date of Delivery Comme nts Yes 09/09/2023 Based on last me nstrual period of 12/03/2022 documented as of this encounter (statuses as of 05/28/2023) Social History Tobacco Use Types Packs/Day Years [...] have money to get more. Never true [place] Depression Scale Answer Date Recorded [place] Depression Scale Total 24 04/30/2023 The thought [...] this encounter Progress Notes * Bouchra Dumont, MEDICARE INSURANCE SPECIALIST - 05/28/2023 1:36 PM EST Patient location: HOME. I was not in a hospital or clinic location. After connecting through televideo, patient was verified with two unique identifiers. Patient (or authorized legal outside sales account representative) was then informed that this was a Telemedicine visit and being conducted confidentially over secure lines. Methods to assure confidentiality were taken. Patient acknowledged consent and understanding of privacy and security of the Telemedicine visit. The patient agreed to participate. Tomeka was at home in [place]. No one else was reported to be present. Residential address on [facility] verified to still beaccurate. My office door was closed. No one else was in the room with me. I informed the patient that I have reviewed their record in [facility] and presented the opportunity for them to ask any questions regarding the visit today. The patient agreed to participate. Provider reviewed elements of Outpatient Services Description including limits of confidentiality, how to contact the department, risks and benefits of treatment and consent for treatment. Start Time: 1:36p Stop Time: 2:29p Total direct [id number] time: 55 Minutes BEHAVIORAL MEDICINE PROGRESS NOTE Psychology, [address] [address] 05/28/2023 1:36 PM TYPE OF VISIT: Individual DIAGNOSIS: Major depressive disorder, recurrent, moderate [F33.1], Generalized anxiety disorder [F41.1], Post-traumatic stress disorder, unspecified [F43.10] REASON FOR FOLLOW-UP: Individual therapy Session #: 1 SESSION FOCUS: Session focused on sx of anxiety, depression, and Tomeka's coping ability. PHQ9 & GAD7 screeners completed and reviewed along with prior screener(s). It was noted that sx of anxiety remain in moderate range, and depressive sx decreased to mild range on today's screener. Tomeka provided additional information since initial evaluation and discussed ongoing stressors. NOTES: Tomeka discussed current situation with boyfriend being incarcerated and not knowing whetherhe will come home or not. She is anticipating the date of 06[address] and thus decide whether she stays in current residence alone or moves in with her aunt in [place]. Tomeka also reported not knowing if she will continue in current relationship. 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 Psycho- education on the Eight dimensions of wellness was provided and discussed as Tomeka identified occupational goal she would like to pursue. She also identified need to be closer to her aunt due to her and soon-to-be new mother. Tomeka also discussed stressors in prior relationship due to her ex- 's struggles with substance use. She identified feelings of abandonment she experienced due to his addiction that she is currently reliving in current relationship with her boyfriend due to his incarceration. She self-reflected on the possibility that she could still be with her ex- if he did not struggle with addiction, as well as feeling guilty for his substance use and his non-adherence to treatment. Therapistprocessed the latter with Tomeka and helped her reframe feelings of self-blame and guilt. Psycho-education on the behavioral aspect of addiction was provided and discussed. Tomeka identified not yet having attained closure with prior relationship. Tomeka was encouraged to redirect attention to the present moment and focus on her well-being and action steps to take to nurture physical and emotional wellness during and after the . PROGRESS TOWARDS GOALS: This was Tomeka's 1st therapy session. She attended on time and was well-engaged. She started exploring hx of PTSD and increasing insight into unhelpful thinking styles that leads her to feel anxious and depressed. Goal: Improved self-management of sx of anxiety, depression, PTSD, and Tomeka's ability to cope with personal stressors. Objective Measures: Pipo-7 Question 05/28/2023 9:49 AM EST - Filed by Patient Over [...] restless that is hard to sit still Not at all Becoming easily annoyed or irritable Several days Feeling afraid as if something awful might happen Several days Total score of all questions (range: 0 - 21) 11 (Moderate) Myc Visit Accident Related Question Question 05/28/2023 9:49 AM EST - Filed by Patient Is this visit related to an accident? (i.e work, motor vehicle) No Phq9-Depression Question 05/28/2023 1:40 PM EST - Filed by Bouchra Dumont [facility] Over the last two weeks, how often have you been bothered by any of the following problems? Little interest or pleasure in doing things Several days Feeling down, depressed or hopeless More than half the days Over the last two weeks, how often have you been bothered by any of the following problems? Trouble falling or staying asleep, or sleeping too much Several days Feeling tired or having little energy More than half the days Poor appetite or overeating Not at all Feeling bad about yourself - or that you are a failure, or have let yourself or your family down More than half the days Trouble concentrating on things, such as [...] Question 3 score (range: 0 - 3) 1 Question 4 score (range: 0 - 3) 2 Question 5 score (range: 0 - 3) 0 Question 6 score (range: 0 - 3) 2 Question 7 score (range: 0 - 3) 1 Question 8 score (range: 0 - 3) 0 Question 9 score (range: 0 - 3) 0 Sum of all PHQ9 questions. (range: 0 - 27) 9 (Mild Depression) E-Zxly-Ovclwyjb/Yskhcr-Spin-Miwiym Question 05/28/2023 1:40 PM EST - Filed by Bouchra [...] ineffective (e.g: ED, hotlines): Suicide and Crisis [facility] and [facility] for Help Signature Obtained on Treatment Plan Patient/ Family Received Copy of Treatment Plan Duration of Treatment Frequency of Treatment Patient unable to sign Treatment Plan acknowledgement document. Signature will be obtained at the time or before [facility] bulletin extension expires. Patient has access to [facility] sessions every other week Patient Identified [...] an aunt and a cousin living in [place]." -willingness to engage in mental health services: Receptive to therapy -future-oriented thinking/planning: "Being a good mom." -coping/social/emotion regulation/self-soothing skills present: "Spending time with my dogs, if I feel stressed, I smoke a cigarette." -has cultural or sabianism beliefs that discourage suicide: "I do believe that everything happen for a reason." Risk Level Impression: -Low risk: Continue outpatient therapy; safety plan may still be indicated; provided crisis numbers -No change in risk from last session (see note dated 05/14/23 for further details) FOLLOW-UP PLAN: Return: 2 weeks on 06/17 @ 1:30p. Action Plan: 1. Continue Individual Cognitive Behavioral Therapy Treatment plan reviewed with the patient. Patient voices understanding and concurs with plan. Bouchra Dumont PsyD, LEXI, NCC, [facility], [facility] Division of Psychiatry & Behavioral Medicine [facility] [phone] documented in this encounter Plan of Treatment Upcoming Encounters Date Type Department Care Team (Late st Contact Info) Description 06/01/2023 9:00 AM EST Office Visit Gynecology/Obstetrics [facility] [address] [facility] [place] [address] Russell Montgomery MD [address] [place] [address] 06/17/2023 1:30 PM EST Telemedicine [facility] [address] [place] [address] Bouchra Dumont LPC [address] [place] [address] Health Maintenance Due Date Last Done Comments [...] fire each visit until score < 10) 05/15/2023 05/14/2023 GARDASIL-HPV IMMUNIZATION SERIES Aged Out No longer [...]
--- OUTSIDE RECORDS SUMMARY | 2023-09-07 09:55 | External Medical Summary | Summary of Care ---
Author Name Unknown Organization [facility] Address [address] [place] [address] Phone [phone] Care Team Providers Care Associate Relations Specialist Name Role Phone Unavailable Primary Care Provider Unavailabl e Reason for Visit * Reason Onset Date Comments Appointment 05/07/2023 CBT Skills for D epression and Anxiety Encounter Details Date Type Department Care Team Description 05/07/2023 Telephone Psychology, [place] [address] [place] [address] Rufus Connolly, [facility] [address] [place] [address] Appointment (CBT Skills for Depression and... Allergies No known active allergiesdocumented as of this encounter (statuses as of 05/07/2023) Medications Medication Sig Dispensed Refills Start Date End Date Status Omeprazole Magnesium 20 MG Oral Tablet Delayed Release Take 1 Tablet by mouth in the morning. 0 Active Magnesium 400 MG Oral Capsule Take 1 Capsule by mouth in the morning. 0 Active 28-0.8 MG Oral Tablet Take by mouth. 0 Active documented as of this encounter (statuses as of 05/07/2023) Active Problems Problem Noted Date , normal first 03/30/2023 Family history of gastroschisis 03/30/20 23 Overview: Pt's half sister History of gynecologic surgery 3 Overview: Hx labioplasty, desires primary C/S Tobacco smoking complicating 0 03/30/2023 Depression complicating , antep artum 03/30/2023 Estimated Date of Delivery Comme nts Yes 09/09/2023 Based on last me nstrual period of 12/03/2022 documented as of this encounter (statuses as of 05/07/2023) Social History Tobacco Use Types Packs/Day Years [...] encounter Miscellaneous Notes * Telephone Encounter - Indra Gee - 05/07/2023 1:21 PM EDT Received referral regarding patient to attend the Virtual CBT Skills group for Depression and Anxiety. Spoke to patient-patient is interested in starting group-patient would like to check with insurance that this type of service will be covered. Patient will call back to be scheduled. documented in this encounter Plan of Treatment Upcoming Encounters Date Type Specialty Care Team Description 05/14/2023 Telemedicine Psychology Bouchra Dumont N, RISK MANAGEMENT ANALYST [address] [facility] [address] 06/01/2023 Office Visit Gynecology Obstetrics Russell Montgomery MD [address] [place] [address] Health Maintenance Due Date Last Done Comments [...] fire each visit until score < 10) 05/06/2023 05/05/2023 GARDASIL-HPV IMMUNIZATION SERIES Aged Out No longer eligible based on patient's age to complete this topic MENINGOCOCCAL (MENACTRA/MENVEO) Aged Out No longer eligible based on patient's age to complete this topic documented as of this encounter Medical Devices Not on filedocumented as of this encounter
--- OUTSIDE RECORDS SUMMARY | 2023-09-07 09:55 | External Medical Summary ---
Author Name Unknown Address Unknown Organization : Laboratory Report Ordering Provider Test Date Status LISA SMITH 03/30/2023 12:05:56 Final Observation Date Value Abnormality Reference (Units ) Status NUMBER OF FETUSES? 03/30/2023 12:05:56 1 Final ADVANCED MATERNAL AGE? 03/30/2023 12:05:56 NO Final ABNORMAL VINNY? 03/30/2023 12:05:56 NO Final ABNORMAL US? 03/30/2023 12:05:56 NOT GIVEN Final PERSONAL/FAM HISTORY? 03/30/2023 12:05:56 NOT GIVEN Final INTERPRETATION 03/30/2023 12:05:56 SEE BELOW Final This specimen showed an expe cted representation of
chromosome 21, 18, and 13 material. Results were
not analyzed or reported for microdeletions. See
'Limitations' below. TRISOMY 21 (T21) 03/30/2023 12:05:56 Negative Final TRISOMY 18 (T18) 03/30/2023 12:05:56 Negative Final TRISOMY 13 (T13) 03/30/2023 12:05:56 Negative Final Y CHROMOSOME 03/30/2023 12:05:56 Detected Final Y CHR. INTERPRETATION 03/30/2023 12:05:56 SEE BELOW Final Consistent with a male fetus . SEX CHROMOSOME 03/30/2023 12:05:56 No aneuploidy Final SEX CHROMOSOME INTERP 03/30/2023 12:05:56 SEE BELOW Final No apparent abnormality was detected. See
'Limitations' below. MICRODELETION 03/30/2023 12:05:56 Opted Out Final MICRODELETION INTERP 03/30/2023 12:05:56 SEE BELOW Final Results were not analyzed or reported for
microdeletions. GESTATIONAL AGE (IN WEEKS) 03/30/2023 12:05:56 16 Final GESTATIONAL AGE (IN DAYS) 03/30/2023 12:05:56 5 Final FRACTION 03/30/2023 12:05:56 15.30% Final LABORATORY COMMENTS 03/30/2023 12:05:56 SEE BELOW Final Laboratory testing supervise d and results
monitored by Sarah Sepulveda, Ph.D., DABG,
[facility]. LIMITATIONS 03/30/2023 12:05:56 SEE BELOW Final QNatal(R) Advanced is a cell -free DNA test that
screens for increased risk of certain
chromosomal abnormalities that may cause
defects, including Trisomy 21 (Down syndrome),
Trisomy 18, Trisomy 13, and certain sex chromosome
abnormalities (i.e., 45,X, 47,XXY, 47,XXX, and
47,XYY), as well as sex. In addition, if
selected as an option, QNatal(R) Advanced can
screen for certain microdeletions (i.e., 22q, 5p,
1p36, 15q, 11q, 8q, and 4p) that may cause
defects. This test does not assess the risk of
abnormalities such as neural tube defects or
ventral wall defects and should not be considered
in isolation from other clinical findings and
laboratory test results.
QNatal(R) Advanced has been validated in sandhu
pregnancies for the trisomies and sex chromosome
abnormalities listed above, as well as for
microdeletions, and for the determination of
sex. Sex chromosome aneuploidy analysis is only
performed in sandhu pregnancies. The test has
also been validated in twin pregnancies for the
trisomies listed above and for microdeletions, but
not for the sex chromosome abnormalities due to
limited data. The test has not been validated in
higher order pregnancies (more than two) because
limited data is available.
Microdeletion screening is limited to the
specified microdeletion regions (see
'Methodology'). The Y chromosome is analyzed for
the determination of sex. The sensitivity
and specificity of sex determination
analysis may be less than that of the Trisomy 21,
18, and 13 analysis and this determination can be
confounded by vanishing twin syndrome in
pregnancies that were originally multiple
gestation pregnancies. It should be noted that
QNatal(R) Advanced is a quantitative analysis of
maternal and placental cfDNA. As a result, the
accuracy of the screening test results may be
affected by the presence of chromosome
abnormalities or microdeletions that are maternal
or confined placental in origin. False positive
findings involving the examined chromosomes and
microdeletion regions may be due to maternal,
placental, or mosaicism, by vanishing twin
syndrome, or other unexplained causes. SPECIFICATIONS 03/30/2023 12:05:56 SEE BELOW Final Sensitivity Specificity
T21 >99.9% >99.9%
T18 >99.9% >99.9%
T13 >99.9% >99.9%
Accuracy
Y >99.9%
Performance of the QNatal Advanced
laboratory-developed test (LDT) has been
determined based on internal analytical
assessment. METHODOLOGY 03/30/2023 12:05:56 SEE BELOW Final Circulating cell-free (cf) D NA was isolated from
plasma followed by detection on a massively
parallel sequencing platform. Bioinformatic
analysis was performed to determine the
representation of chromosomes 21, 18, 13, X and Y
in circulating cell-free DNA. The representation
of sequences from the critical regions involved in
1p36 microdeletion syndrome (1p36),
Remy-Hirschhorn syndrome (4p), Cri-du-chat
syndrome (5p), Gaudencio-Giedion syndrome (8p),
Ousmane syndrome (11q), Prader Willi
syndrome/Angelman syndrome (15q), and DiGeorge
syndrome (22q) is evaluated for the detection of
microdeletions if requested. This test was
developed, and its performance characteristics
have been determined by [employer]
[facility]. It has not been
cleared or approved by the U.S. Food and Drug
Administration. Performance characteristics refer
to the analytical performance of the test. This
test is performed pursuant to a license agreement
with [employer].
This test was developed and its analytical
performance characteristics have been determined
by [facility]. It has not been cleared or approved by
FDA. This assay has been validated pursuant to the
CLIA regulations and is used for clinical
purposes.
Test performed by [facility]
[address],
[place] [address]

Hospital Aide: Georgette Houston MD,PHD,BERT
Test Reported by [facility],
[facility],
[address] [place], [place]
Santos Mohan M.D., Ph.D., Director of Laboratories
, CLIA [id number] Performing Location
--- OUTSIDE RECORDS SUMMARY | 2023-09-07 09:55 | External Medical Summary | Summary of Care ---
Author Name Unknown Organization [facility] Address [address] [place] [address] Phone [phone] Care Team Providers Care Fisher Crab Name Role Phone Unavailable Primary Care Provider Unavailabl e Reason for Visit * Reason Comments Outpatient Testing Encounter Details Date Type Department Care Team Description 03/30/2023 Laboratory Laboratory, [facility] [address] [place] [address] [facility] [address] [place] [address] Encounter for supervision of normal first in second trimester Allergies No known active allergiesdocumented as [...] Encounters Date Type Specialty Care Team Description 04/30/2023 Imaging Radiology 04/30/2023 Office Visit Gynecology Obstetrics Cathleen Hill PA-C [address] [place] [address] Pending Results Name Type Priority Associated Diagnoses Date /Time QNATAL ADVANCED (QUEST) Lab Routine Encounter for supervision of normal first in second trimester 03/30/2023 12:05 PM EDT MATERNAL SERUM AFP Lab Routine Encounter for supervision of normal first in second trimester 03/30/2023 12:05 PM EDT Health Maintenance Due Date Last Done Comments [...] supervision of normal first in second trimester Supervision of normal first documented in this encounter
--- OUTSIDE RECORDS SUMMARY | 2023-09-07 09:55 | External Medical Summary | Summary of Care ---
Author Name Unknown Organization [facility] Address [address] [place] [address] Phone [phone] Care Team Providers Care Cured Meats Supervisor Name Role Phone Unavailable Primary Care Provider Unavailabl e Reason for Visit * Reason Comments Return Visit Encounter Details Date Type Department Care Team ([facility] st Contact Info) Description 06/01/2023 9:00 AM EST Office Visit [facility]necology[facility] [address] [place] [address] Russell Montgomery MD [address] [place] [address] Encounter for supervision of normal first in third trimester*; Family history of gastroschisis; History of gynecologic surgery; Tobacco smoking affecting in second trimester; Depression complicating , antepartum Allergies No known active allergiesdocumented as of this encounter (statuses as of 06/01/2023) Medications Medication Sig Dispensed Refills Start Date End Date Status Omeprazole Magnesium 20 MG Oral Tablet Delayed Release Take 1 Tablet by mouth in the morning. 0 Active Magnesium 400 MG Oral Capsule Take 1 Capsule by mouth in the morning. 0 Active 28-0.8 MG Oral Tablet Take by mouth. 0 Active documented as of this encounter (statuses as of 06/01/2023) Active Problems Problem Noted Date Diagnosed Date , normal first 03/30/2023 Family history of gastroschisis 03/30/2023 Overview: Pt's half sister History of gynecologic surgery 03/30/2023 Overview: Hx labioplasty, desires primary C/S Tobacco smoking complicating Depression complicating , antepartum Estimated Date of Delivery Comme nts Yes 09/09/2023 Based on last me nstrual period of 12/03/2022 documented as of this encounter (statuses as of 06/01/2023) Social History Tobacco Use Types Packs/Day Years [...] have money to get more. Never true [place] Depression Scale Answer Date Recorded [place] Depression Scale Total 24 04/30/2023 The thought [...] Sign Reading Time Taken Comments Blood Pressure 106/58 06/01/2023 8:44 AM EST Pulse - - Temperature - - Respiratory Rate - - Oxygen Saturation - - Inhaled Oxygen Concentration - - Weight 63 kg (139 lb) 06/01/2023 8:44 AM EST Height 157.5 cm (5' 2") 06/01/2023 8:44 AM EST Body Mass Index 25.42 06/01/2023 8:44 AM EST documented in this encounter Progress Notes * Russell Montgomery MD - 06/01/2023 9:14 AM EST 1st time seeing pt Pt is s/p labioplasty and wishes to have elective c/sec Discussed risk of c/sec vrs vaginal delivery Pt is willing to incur risk in order to avoid any disruption in her vulva /labia Pt will be scheduled for c/sec * Susie Daly LPN - 06/01/2023 8:49 AM EST [id number] Denies concerns. Discuss elective d/t hx of labiaplasty. Patient states she will likely be moving out of [place] within the next month. Printed episode and sent with patient today. documented in this encounter Plan of Treatment Upcoming Encounters Date Type Department Care Team (Late st Contact Info) Description 06/17/2023 1:30 PM EST Telemedicine [facility] [address] [place] [address] BurtBouchra comer, [facility] [address] [place] [address] 06/29/2023 10:00 AM EST [facility] [address] [place] [phone] [facility] [address] [facility] [place] [address] 06/29/2023 10:15 AM EST Office Visit Gynecology/Obstetrics [facility] [address] [place] [address] Nisa Porras CRNP [address] [facility] [place] [address] Scheduled Orders Name Type Priority Associated Diagnoses Orde r Schedule CBC WITH WBC DIFFERENTIAL AND ANEMIA REFLEX WORKUP Lab Routine Encounter for supervision of normal first in third trimester Expected: 06/15/2023 (Approximate), Expires: 06/01/2024 SYPHILIS ANTIBODY SCREEN WITH REFLEX TO RPR Lab Routine Encounter for supervision of normal first in third trimester Expected: 06/15/2023 (Approximate), Expires: 06/01/2024 50-G GESTATIONAL GLUCOSE, 1 HOUR Lab Routine Encounter for supervision of normal first in third trimester Expected: 06/15/2023 (Approximate), Expires: 06/01/2024 Health Maintenance Due Date Last Done Comments [...]
--- OUTSIDE RECORDS SUMMARY | 2023-09-07 09:55 | External Medical Summary | Summary of Care ---
Author Name Unknown Organization [facility] Address [address] [place] [address] Phone [phone] Care Team Providers Care Draw Furnace Tender Name Role Phone Unavailable Primary Care Provider Unavailabl e Reason for Referral * Evaluate & Treat - Unlimited Visits (Within 10 days (routine)) - Pending Review Specialty Diagnoses / Procedures Referred By Mateo terry Referred To Contact Psychology Diagnoses Depression complicating , antepartum Backer, GAIL Stanford [address] [place] [address] Referral ID Status Reason Start Date Expiration Date Visits Requested Visits Authorized [id number] Pending Review Specialty Services Required [phone] Question Answer Referral Priority Within 10 days (routine) Where should this appointment be scheduled? [facility] Is this referral for medication management? No Referral To Marcela Reason for Referral: Depression/Anxiety/Bipolar Specific Condition? Depression * Evaluate & Treat - Unlimited Visits (Within 3 days (urgent)) - Pending Review Specialty Diagnoses / Procedures Referred By Mateo terry Referred To Contact Psychiatry Diagnoses Depression complicating , antepartum Backgiovanny, GAIL Stanford [address] [place] [address] Referral ID Status Reason Start Date Expiration Date Visits Requested Visits Authorized [id number] Pending Review Specialty Services Required [phone] Question Answer Referral Priority Within 3 days (urgent) Where should this appointment be scheduled? [facility] Is this referral for medication management? Yes Referral To Marcela Reason for Referral Depression Comments Patient was on opipram [place], did well with this. Depression in . Reason for Visit * Reason Comments Return Visit Encounter Details Date Type Department Care Team Description 04/30/2023 Office Visit Gynecology/Obstetrics Anna York [address] [place] [address] Anastasiya Causey CRNP [address] [place] [address] Encounter for supervision of normal first in second trimester*; Family history of gastroschisis; History of gynecologic surgery; Tobacco smoking affecting in second trimester; Depression complicating , antepartum Allergies No known active allergiesdocumented as of this encounter (statuses as of 04/30/2023) Medications Medication Sig Dispensed Refills Start Date End Date Status Omeprazole Magnesium 20 MG Oral Tablet Delayed Release Take 1 Tablet by mouth in the morning. 0 Active Magnesium 400 MG Oral Capsule Take 1 Capsule by mouth in the morning. 0 Active 28-0.8 MG Oral Tablet Take by mouth. 0 Active documented as of this encounter (statuses as of 04/30/2023) Active Problems Problem Noted Date , normal [...] as of this encounter (statuses as of 04/30/2023) Social History Tobacco Use Types Packs/Day Years [...] Sign Reading Time Taken Comments Blood Pressure 102/58 04/30/2023 11:03 AM EDT Pulse - - Temperature - - Respiratory Rate - - Oxygen Saturation - - Inhaled Oxygen Concentration - - Weight 62.1 kg (137 lb) 04/30/2023 11:03 AM EDT Height 157.5 cm (5' 2") 04/30/2023 11:03 AM EDT Body Mass Index 25.06 04/30/2023 11:03 AM EDT documented in this encounter Progress Notes * GAIL Reilly - 04/30/2023 11:17 AM EDT 21w1d Anatomy scan today, report in process. +cardiac activity. No bleeding/cramping. Was rx'd Zoloft for depression/anxiety, not comfortable taking this. Knew someone who was on this and baby had tremors after delivery, mom had nosebleeds. Advised that these may be from reasons otherthan medication exposure. Discussed risks of untreated depression in , including PPD/PPA, low weight, delivery, preE. Was on an antidepressant overseas (Omipramol) which worked very well; not available in [place] and unable to find equivelant. Psychiatry and psychology referrals placed. Pt reports feeling safe at home and denies thoughts of suicide. She is aware to reach out for immediate medical attention if this changes. 4 week return GAIL Pickens [place] Depression Scale: [place] Depression Scale Total: 24 [place] suicide question and score: Score of 3 = Yes, quite often. Score of 2 = Sometimes. Score of 1 = Hardly ever The thought of harming myself has occurred to me.: 0 * Susie Ayers LPN - 04/30/2023 11:11 AM EDT 21w1d Feels sharp pain in rectum. Would like to discuss depression/anxiety. Was not comfortable taking Zoloft. documented in this encounter Nursing Notes * Susie Ayers LPN - 04/30/2023 11:10 AM EDT 21w1d Would like to discuss depression/anxiety. Not comfortable with Zoloft. Feels sharp pain in rectal area. documented in this encounter Plan of Treatment Upcoming Encounters Date Type Specialty Care Team Description 06/01/2023 Office Visit Gynecology Obstetrics Russell Montgomery MD [address] [place] [address] Scheduled Referrals Name Type Priority Associated Diagnoses [...] 2019 Influenza Vaccine (FLU shot) (#1) 2023 GARDASIL-HPV IMMUNIZATION SERIES Aged Out No longer [...]
--- OUTSIDE RECORDS SUMMARY | 2023-09-07 09:55 | External Medical Summary | Summary of Care ---
Author Name Unknown Organization [facility] Address [address] [place] [address] Phone [phone] Care Team Providers Care Lead Applications Developer Name Role Phone Unavailable Primary Care Provider Unavailabl e Reason for Visit * Reason Comments Anxiety Depression Trauma * Evaluate & Treat - Unlimited Visits (Within 10 days (routine)) - Pending Review Specialty Diagnoses / Procedures Referred By Mateo terry Referred To Contact Psychology Diagnoses Depression complicating , antepartum Backer, GAIL Stanford [address] [place] [address] Referral ID Status Reason Start Date Expiration Date Visits Requested Visits Authorized [id number] Pending Review Specialty Services Required [phone] Encounter Details Date Type Department Care Team Description 05/05/2023 [facility] [address], [place] [id number] Rufus Connolly [facility] [address] [place] [address] Major depressive disorder, recurrent episode, [...] hospital or clinic location. After connecting through [employer], patient was verified with two unique identifiers. Patient (or authorized legal telesales representative) was then informed that this was [...] is 33 year old. [facility] Depression Brief History of [...] ESTHER 7: 10-14 Moderate Anxiety Screening Questionnaires: [place] Suicide Severity Rating Scale Results 05/05/2023 10:22 [...] on guard, watchful, or easily startled? YES [place] numb or detached from people, activities, or your surroundings? YES [place] guilty or unable to stop blaming yourself [...] hotlines): Suicide and Crisis Lifeline - 988, Fivejack access to crisis numbers, and nexTune Hotlines for Help SISQ - How many [...] DV Collaboration of Care: Yes, provider within [facility], information is shared automatically in medical record Interactive Complexity: did not involve interactive complexity. documented in this encounter Plan of Treatment Upcoming Encounters Date Type Specialty Care Team Description 05/14/2023 Telemedicine Psychology Bouchra Dumont, [facility] [address] [place] [facility] [place] [address] 06/01/2023 Office Visit Gynecology Obstetrics Russell Montgomery MD [address] [facility] [address] Scheduled Referrals Name Type Priority Associated Diagnoses [...]
--- OUTSIDE RECORDS SUMMARY | 2023-09-07 09:55 | External Medical Summary | Summary of Care ---
Author Name Unknown Organization [facility] Address [address] [facility] [place] [address] Phone [phone] Care Team Providers Care Header Setup Operator Name Role Phone Unavailable Primary Care Provider Unavailabl e Reason for Visit * Reason Onset Date Comments Back Pain 06/11/[address] Rascon Encounter Details Date Type Department Care Team ([facility] st Contact Info) Description 06/11/2023 Telephone [facility] [address] [place] [address] Cely Nielsen MD [address] [place] [phone] Back Pain (Review with Dr. Rascon) Allergies [...] Diagnosed Date Food insecurity 05/31/2023 Overview: Per [employer] [facility] Protocol , normal first 03/30/2023 [...] have money to get more. Never true [place] Depression Scale Answer Date Recorded [place] Depression Scale Total 24 04/30/2023 The thought [...] encounter Miscellaneous Notes * Telephone Encounter - Cely Nielsen MD - 06/11/2023 1:28 PM EST Agree Thanks * Telephone Encounter - Chantel aNth RN - 06/11/2023 10:55 AM EST Patient [...] Info) Description 06/17/2023 1:30 PM EST Telemedicine Psychology, [place] [address] [place], [place] [phone] Bouchra Dumont [facility] [address] [place] [address] 06/29/2023 10:00 AM EST Laboratory Laboratory, [facility] [address] [facility] [phone] [facility] [address] [place] [address] 06/29/2023 10:15 AM EST Office Visit Gynecology/Obstetrics [facility] [address] [facility] [place] [address] Nisa Porras CRNP [address] [facility] [place] [address] Health Maintenance Due Date Last Done Comments [...]
--- OUTSIDE RECORDS SUMMARY | 2023-09-07 09:55 | External Medical Summary | Summary of Care ---
Author Name Unknown Organization [facility] Address [address] [facility] [place] [address] Phone [phone] Care Team Providers Care Central Supply Nurse Name Role Phone Unavailable Primary Care Provider Unavailabl e Reason for Visit * Reason Onset Date Comments Back Pain 06/11/[address] Rascon Encounter Details Date Type Department Care Team ([facility] st Contact Info) Description 06/11/2023 Telephone [facility] [address] [place] [address] Cely Nielsen MD [address] [place] [phone] Back Pain (Review with Dr. Rascon) Allergies [...] Diagnosed Date Food insecurity 05/31/2023 Overview: Per [facility] Protocol , normal first 03/30/2023 [...] have money to get more. Never true [place] Depression Scale Answer Date Recorded [place] Depression Scale Total 24 04/30/2023 The thought of harming myself has occurred to me . Never 04/30/2023 Estimated Date of Delivery Comme nts Yes 09/09/2023 Based on last me nstrual period of 12/03/2022 Sex and Gender Information Value Date Recorded Sex Assigned at Female 01/22/2023 9:07 AM EDT Gender Identity Female 01/22/2023 9:07 AM EDT Sexual Orientation Straight 01/22/2023 9 :18 AM EDT Job Start Date Occupation Industry [...] Description 06/17/2023 1:30 PM EST Telemedicine Psychology, [place] [address] [place] [address] Bouchra Dumont, FIELD TRAINING MANAGER [address] [place] [address] 06/29/2023 10:00 AM EST Laboratory Laboratory, [facility] [address] [place] [phone] [facility] [address] [place] [address] 06/29/2023 10:15 AM EST Office Visit Gynecology/Obstetrics [facility] [address] [facility] [place] [address] Nisa Porras CRNP [address] [facility] [place] [address] Health Maintenance Due Date Last Done Comments [...]
--- OUTSIDE RECORDS SUMMARY | 2023-09-07 09:55 | External Medical Summary ---
Author Name Unknown Address Unknown Organization : Laboratory Report Ordering Provider Test Date Status LISA SMITH 03/30/2023 12:05:56 Final Observation Date Value Abnormality Reference (Units ) Status INTERPRETATION 03/30/2023 12:05:56 SEE BELOW Final Screen negative for open NTD . RISK FOR ONTD 03/30/2023 12:05:56 <1:5000 Final CALC'D GESTATIONAL AGE 0903/30/2023 12:05:56 16.7 Final AFP, SERUM 03/30/2023 12:05:56 34.8 (ng/mL) Final AFP MOM 03/30/2023 12:05:56 0.84 Final Reference Range:
NTD <2 .50
IDD <1.90
TWINS <4.00
TWINS IDD <3.50
TRIPLETS <4.50
The AFP test result indicates that this patient is
screen negative for open NTD. It should be noted
that normal test results can never guarantee the
of a normal baby and that 2-3% of newborns
have some type of physical or mental defect, many
of which are undetectable through any known
diagnostic technique.
This is a screening test, not a diagnostic test.
This risk assessment report is based in part on
demographic data provided by the ordering
physician. Please notify the laboratory promptly
if any data are incorrect. For assistance with
recalculations, please call your local [facility] laboratory. For assistance with
interpretation of these results, please contact
your Local [facility] genetic counselor or
call [phone] ([phone]).
Interpretive Cutoffs
Screen Positive for Open NTD:
> or = 2.50 adjusted MOM
> or = 1.90 adjusted MOM for insulin- dependent diabetics
> or = 4.00 adjusted MOM for twins
> or = 3.50 adjusted MOM for twins insulin-dependent diabetics
> or = 4.50 adjusted MOM for triplets
For additional information, please refer to
[email or web address]
(This link is being provided for
informational/educational purposes only.) DATE OF 03/30/2023 12:05:56 1990 Final COLLECTION DATE 03/30/2023 12:05:56 03/30/2023 Final MATERNAL WEIGHT 03/30/2023 12:05:56 128 (lbs ) Final EST'D DATE OF DELIVERY 03/30/2023 12:05:56 09/09/2023 Final DOUGLAS DETERMINED BY 03/30/2023 12:05:56 NG Final MOTHER'S ETHNIC ORIGIN 03/30/2023 12:05:56 WHITE Final NUMBER OF FETUSES 03/30/2023 12:05:56 1 Final INSULIN DEPEND DIABETIC 03/30/2023 12:05:56 NO Final REPEAT SPECIMEN 03/30/2023 12:05:56 NO Final HX OF NEURAL TUBE DEFECTS 03/30/2023 12:05:56 NO Final PREV DOWN SYND 03/30/2023 12:05:56 NO Final DONOR EGG 03/30/2023 12:05:56 NO Final DONOR AGE: EGG RETRIEVAL 03/30/2023 12:05:56 NOT GIVEN Final Test performed by [facility]
[address],
[place] [address]

Buckle Attacher: Georgette Houston MD,PHD,BERT
Test Reported by [facility],
[facility],
[address] [place], [place]
Santos Mohan M.D., Ph.D., Director of Laboratories
, [place] [id number] Performing Location
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
[2023-09-07] MEDS: KETOROLAC 30 MG/ML VIAL IV PRN (10:33)
--- NOTE | 2023-09-07 11:44 | Anesthesiology Progress Note ---
Date of Service September 07, 2023 Anesthesia Post Procedure Vital Signs Vital Signs: Temp Pulse Resp BP Pulse Ox 09/07/23 11:15 107 H 127/70 09/07/23 11:14 88 95 09/07/23 11:10 85 94 09/07/23 11:09 110 H 96 09/07/23 11:05 36.7 C 18 09/07/23 11:05 110 H 125/70 94 09/07/23 11:04 82 95 09/07/23 10:59 87 95 09/07/23 10:58 90 94 09/07/23 10:55 79 128/70 09/07/23 10:54 82 96 09/07/23 10:49 79 97 09/07/23 10:47 82 94 09/07/23 10:45 96 H 134/68 09/07/23 10:44 86 96 09/07/23 10:39 82 97 09/07/23 10:35 16 09/07/23 10:35 99 H 130/73 09/07/23 10:34 80 97 09/07/23 10:29 99 H 97 09/07/23 10:25 74 128/63 09/07/23 10:24 76 98 09/07/23 10:19 76 97 09/07/23 10:15 88 125/61 09/07/23 10:14 77 97 09/07/23 10:09 75 97 09/07/23 10:07 84 92 09/07/23 10:05 16 09/07/23 10:04 73 97 09/07/23 09:59 78 94 09/07/23 09:56 106 H 113/74 09/07/23 09:55 16 09/07/23 09:54 92 H 96 09/07/23 09:49 90 97 09/07/23 09:45 16 09/07/23 09:44 97 09/07/23 09:44 95 H 09/07/23 09:44 100 H 94 09/07/23 09:43 89 120/64 09/07/23 09:39 88 97 09/07/23 09:35 14 09/07/23 09:34 88 96 09/07/23 09:32 75 94 09/07/23 09:29 87 96 09/07/23 09:25 14 09/07/23 09:25 93 H 116/64 09/07/23 09:24 84 97 09/07/23 09:19 94 H 98 09/07/23 09:15 16 09/07/23 09:15 93 H 111/58 L 09/07/23 09:14 105 H 99 09/07/23 09:13 79 92 09/07/23 09:09 87 96 09/07/23 09:05 36.4 C L 16 09/07/23 09:05 77 119/57 L 09/07/23 09:04 82 98 09/07/23 05:59 91 H 119/67 09/07/23 05:53 37.1 C 18 Pain Intensity Lower Abdomen: Pain Intensity: 2 Transfer of Care Handoff Completed per policy Notes Mental Status: alert / awake / arousable Patient Amnestic to Procedure: Yes Nausea / Vomiting: adequately controlled Pain: adequately controlled Airway Patency, RR, SpO2: stable & adequate BP & HR: stable & adequate Hydration State: stable & adequate Neuraxial Anesthesia: was administered and sensory block is resolving Anesthetic Complications: no major complications apparent
[2023-09-07] MEDS: SIMETHICONE 80 MG CHEW PO SCH (13:16)
--- NOTE | 2023-09-07 17:46 | Psychiatric Consultation ---
Date of Consultation September 07, 2023 Impression / Recommendations Impression 33 yo female with sporadic/brief use of antidepressant, primarily for nonspecific anxiety. Risks/benefits/alternatives reviewed re: SSRI vs Buspar and patient prefers the latter. (1) Anxiety: Plan would suggest trial of Buspar 5 mg BID meals, initiation at discretion of Dr. Montgomery patient [facility] agreeable to referral for psychiatric prescriber--[facility] referral or [facility] in am. CPT Code Overall, I spent a total of 58 minutes with this case, including review of chart, direct evaluation of the patient, counseling the patient, communication with family, coordination with nursing,coordination of care with hospitalist service, and documentation. Psych History Identifying Data 33 yo female from [place], seen individually and with her partner. consult is by Dr. Montgomery as patient desires restart antidepressant medication. Chief Complaint "my boyfriend's ex had nosebleeds on Zoloft so I don't want that". History of Present Illness Patient has a hx of nonspecifica anxiety and depression on/off for >5 years, treatment with medication has been intermittent. When still residing in [place] >3.5 years ago took Opipramol with benefit (google search shows a tricyclic). In states briefly took Lexapro, stopped 1 month into . Has an rx for Zoloft but never took it for reason above. She scored 8 on the PHQ-9, mainly for feeling tired and difficulty concentrating. She denies SI. She did start therapy with a [facility] therapist 2-3 months ago and plans to continue. She denies any prior hx of rios, psychosis, inpatient hospitalizations, or suicide attempts. She denied access to weapons. She feels anxiety is primary and would like some immediate relief. She does not plan to breast feed. She does tend to worry more at night and did take trazodone in past with benefit but "I don't want that now I would never be able to get up for the baby." Baby is sleeping at bedside and mom checking on him. Allergies Allergy/AdvReac Type Severity Reaction Status Date / Time gluten Allergy Unknown celiac Verified 09/01/23 14:24 disease Home Medications Medication Instructions Recorded Confirmed Type acetaminophen 325 mg tablet 325 mg PO QID PRN Pain 09/01/23 09/07/23 History ferrous sulfate 325 mg (65 mg 325 mg PO DAILY 09/01/23 09/07/23 History iron) tablet (Iron (ferrous sulfate)) magnesium 250 mg tablet 600 mg PO DAILY 09/01/23 09/07/23 History omeprazole 20 mg capsule,delayed 20 mg PO QAM 09/01/23 09/07/23 History release cyemqyht-pyh-Tk-FA 1 mg 1 tab PO QAM 09/01/23 09/07/23 History tablet Patient History Medical History (Updated 09/07/23 @ 17:43 by June Wiseman MD) Anxiety Hx of migraines treated w/ acupuncture Lactose intolerance Celiac disease Surgical History Hx of colonoscopy Hx of surgical procedure labial surgery Hx of wisdom tooth extraction Family History Other No family history of adverse response to anesthesia Social History Smoking Status: Current every day smoker Tobacco Type: Cigarettes Cigarettes Per Day: 4; Second Hand Exposure: No; Do You Dip or Chew Tobacco: No; Tobacco Cessation Education Requested by Patient: No Hx Alcohol Use: No Hx Substance Use: No Preferred Language: Indian Communication Ability: Effective 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 Beliefs That Will Affect Care: None marital status: Current Living Situation: Significant Other Other Information That Helps Us Care for You: No Feels Safe at Home: Yes Safety Concerns: Feels Safe At This Time Assistive Devices: None Physical Exam Psychiatric: Orientation: alert and oriented x 3 Apperance: appropriately dressed and appropriately groomed Eye Contact: good eye contact Motor Behavior: no abnormal motor movements Speech: normal rate/rhythm/volume of speech Affect: euthymic affect Mood: + anxious mood Thought Process: goal directed thought process Thought Content: reality based without delusions Suicidal Thoughts: denies suicidal thoughts Homicidal Thoughts: denies homicidal thoughts Hallucinations: no auditory hallucinations and no visual hallucinations Cognition: attention grossly intact and language grossly intact Vital Signs (Past 24 Hours): Last Vital Signs Temp 36.4 C L 09/07/23 16:00 Pulse 82 09/07/23 16:00 Resp 18 09/07/23 17:00 BP 118/77 09/07/23 16:00 Pulse Ox 95 09/07/23 17:00 O2 Del Method Room Air 09/07/23 16:00 Review of Systems All systems reviewed & are unremarkable except as noted in HPI & below Results & Data (PSY) Medications Administered Cefazolin Sodium (Ancef 2000mg) 2,000 mg in 15 mls @ 3.75 mls/min IV PREOP PHILIP; Protocol Stop: 09/07/23 18:00 Last Admin: 09/07/23 07:43 Dose: 3.75 mls/min Documented By: SIRGID Oxytocin/Lactated Ringer's (Pitocin 20 Units/Lr) 1,002 mls @ 125 mls/hr IV .Q8H1M PHILIP Stop: 10/07/23 09:14 Last Admin: 09/07/23 09:36 Dose: 125 mls/hr Documented By: SIGRID Co-signed By: ANCELMO Ketorolac Tromethamine (Ketorolac 30 Mg/Ml Vial) 30 mg IV Q6H PRN PRN Reason: [facility] Stop: 09/08/23 02:25 Last Admin: 09/07/23 16:00 Dose: 30 mg Documented By: Admin: 09/07/23 10:33 Dose: 30 mg Documented By: SIGRID Simethicone (Simethicone 80 Mg Chew) 80 mg PO DAILY@08,,, [facility] Stop: 10/07/23 12:59 Last Admin: 09/07/23 13:16 Dose: 80 mg Documented By: TOY Coding Level of Care Code 98008 U Intl Hosp Care Lvl 2 Diagnoses Anxiety F41.9
[2023-09-07] MEDS: busPIRone 5 MG TAB PO SCH (20:35)
[2023-09-07] MEDS: DOCUSATE SODIUM 100 MG CAP PO SCH (20:36)
[2023-09-08] MEDS ORDERED: ONDANSETRON INJ 2 MG/ML 2 ML VIAL IV PRN (02:25)
[2023-09-08] MEDS ORDERED: diphenhydrAMINE 50 MG/ML VIAL IV PRN (02:25)
[2023-09-08] MEDS ORDERED: PROMETHAZINE HCL 25 MG in SODIUM CHLORIDE 0.9% 50 ML IV PRN (02:25)
[2023-09-08] MEDS ORDERED: diphenhydrAMINE Capsule 25 MG CAP PO PRN (02:25)
[2023-09-08] MEDS: IBUPROFEN 600 MG TAB PO PRN (06:10)
[2023-09-08] MEDS: oxyCODONE/ACETAMINOPHEN 5mg/325mg TAB PO PRN (06:10)
[2023-09-08 06:42] LABS: Basophils # (auto) 0.02 K/uL (0.00-0.20); Basophils % (auto) 0.1 %; Eosinophils # (auto) 0.04 K/uL (0.00-0.50); Eosinophils % (auto) 0.2 %; Hematocrit (blood only) 33.4 % (37.0-47.0); Hemoglobin 11.7 g/dl (12.0-16.0); Immature Granulocytes # (auto) 0.13 K/uL (0.01-0.20); Immature Granulocytes % (auto) 0.7 %; Lymphocytes # (auto) 1.22 K/uL (1.20-3.40); Mean Corpuscular Hemoglobin 30.4 pg (25.0-34.0); Mean Corpuscular Volume 86.8 fL (80.0-100.0); Mean Platelet Volume 11.1 fL (9.4-12.4); Monocytes # (auto) 0.79 K/uL (0.11-0.59); Monocytes % (auto) 4.5 %; Neutrophils # (auto) 15.17 K/uL (1.40-6.50); Neutrophils % (auto) 87.5 %; Platelet Count 177 K/uL (130-400); RDW Coefficient of Variation 13.1 % (11.5-14.5); RDW Standard Deviation 40.9 fL (36.4-46.3); Red Blood Count 3.85 M/uL (4.20-5.40); White Blood Count 17.37 K/ul (4.8-10.8)
--- NOTE | 2023-09-08 07:44 | Obstetrical Progress Note ---
Date of Service September 08, 2023 Assessment & Plan Admission and Anticipated Discharge Date Admission Date: September 07, 2023 Subjective Patient is seen and examined. She feels well, no complaints other tna being tired. Pain is under control with oral meds. Could not Ambulate felt dizzy last night, awaiting breakfast and plan to ambulate after Tolerating regular diet with out N&V Flatus + BM neg Bleeding is minimal No fever/ chills/ CP/ SOB/ N&V/ Leg pain Bottle/ formula feeding without problems Vital Signs Temp Pulse Resp BP Pulse Ox O2 Del Method 09/08/23 02:50 36.8 C 74 18 102/69 96 Room Air 09/08/23 02:00 18 96 09/08/23 01:00 18 95 09/08/23 00:00 18 96 09/07/23 23:59 36.8 C 76 18 109/67 96 Room Air 09/07/23 23:00 18 96 09/07/23 22:00 18 96 09/07/23 21:00 18 96 09/07/23 20:00 18 95 Lab Results 09/07/23 09/07/23 09/07/23 Range/Units 05:53 08:15 08:15 WBC 11.49 H (4.8-10.8) K/ul RBC 4.22 (4.20-5.40) M/uL Hgb 12.7 (12.0-16.0) g/dl Hct 36.6 L (37.0-47.0) % MCV 86.7 (80.0-100.0) fL MCH 30.1 (25.0-34.0) pg MCHC 34.7 (32.0-36.0) g/dL RDW Std Deviation 41.2 (36.4-46.3) fL RDW Coeff of Daniel 13.2 (11.5-14.5) % Plt Count 232 (130-400) K/uL MPV 11.6 (9.4-12.4) fL Immature Gran % (Auto) 0.7 % Neut % (Auto) 77.5 % Lymph % (Auto) 15.3 % [place] % (Auto) 5.7 % Eos % (Auto) 0.5 % Baso % (Auto) 0.3 % Neut # (Auto) 8.90 H (1.40-6.50) K/uL Lymph # (Auto) 1.76 (1.20-3.40) K/uL [place] # (Auto) 0.66 H (0.11-0.59) K/uL Eos # (Auto) 0.06 (0.00-0.50) K/uL Baso # (Auto) 0.03 (0.00-0.20) K/uL Immature Gran # (Auto) 0.08 (0.01-0.20) K/uL Cord ABG pH Cancelled Cord ABG pCO2 Cancelled Cord ABG pO2 Cancelled Cord ABG HCO3 Cancelled Cord ABG Base Excess Cancelled Cord ABG O2 Sat Cancelled Cord VBG pH 7.33 (7.20-7.44) Cord VBG pCO2 49 (30.4-57.2) mmHg Cord VBG pO2 26 (14.1-43.3) mmHg Cord VBG HCO3 26 (18.4-26.8) mmol/L Cord VBG Base Excess -0.7 (-7.7-1.9) mEq/L Cord VBG O2 Sat < 60.0 (<68) % Barometric Pressure Cancelled Blood Gas Comments MONTIEL Cancelled Blood Type A Positive Antibody Screen NEGATIVE 09/08/23 Range/Units 06:15 WBC 17.37 H (4.8-10.8) K/ul RBC 3.85 L (4.20-5.40) M/uL Hgb 11.7 L (12.0-16.0) g/dl Hct 33.4 L (37.0-47.0) % MCV 86.8 (80.0-100.0) fL MCH 30.4 (25.0-34.0) pg MCHC 35.0 (32.0-36.0) g/dL RDW Std Deviation 40.9 (36.4-46.3) fL RDW Coeff of Daniel 13.1 (11.5-14.5) % Plt Count 177 (130-400) K/uL MPV 11.1 (9.4-12.4) fL Immature Gran % (Auto) 0.7 % Neut % (Auto) 87.5 % Lymph % (Auto) 7.0 % [place] % (Auto) 4.5 % Eos % (Auto) 0.2 % Baso % (Auto) 0.1 % Neut # (Auto) 15.17 H (1.40-6.50) K/uL Lymph # (Auto) 1.22 (1.20-3.40) K/uL [place] # (Auto) 0.79 H (0.11-0.59) K/uL Eos # (Auto) 0.04 (0.00-0.50) K/uL Baso # (Auto) 0.02 (0.00-0.20) K/uL Immature Gran # (Auto) 0.13 (0.01-0.20) K/uL Cord ABG pH Cord ABG pCO2 Cord ABG pO2 Cord ABG HCO3 Cord ABG Base Excess Cord ABG O2 Sat Cord VBG pH (7.20-7.44) Cord VBG pCO2 (30.4-57.2) mmHg Cord VBG pO2 (14.1-43.3) mmHg Cord VBG HCO3 (18.4-26.8) mmol/L Cord VBG Base Excess (-7.7-1.9) mEq/L Cord VBG O2 Sat (<68) % Barometric Pressure Blood Gas Comments Blood Type Antibody Screen PE: General: Alert, orientedx3, NAD CVS: S1S2 RRR Lungs; CTAB Abd: soft, NT, ND, BS+, fundus firm, below Umbilicus Incision: Clean, dry, intact Perineum intact, Lochia rubra minimal Ext; NT, no edema AP: 33 yo s/p C Section, pod# 1 VSS Afebrile doing well Continue routine postop care Encourage ambulation after breakfast, PO intake All questions were answered Results & Data Vital Signs (Past 12 Hours) Vital Signs Temp Pulse Resp BP Pulse Ox O2 Del Method 09/08/23 02:50 36.8 C 74 18 102/69 96 Room Air 09/08/23 02:00 18 96 09/08/23 01:00 18 95 09/08/23 00:00 18 96 09/07/23 23:59 36.8 C 76 18 109/67 96 Room Air 09/07/23 23:00 18 96 09/07/23 22:00 18 96 09/07/23 21:00 18 96 09/07/23 20:00 18 95
[2023-09-08] MEDS: FERROUS SULFATE 325 MG TAB PO SCH (09:18)
[2023-09-08] MEDS: PRENATAL VITAMIN 1 TAB PO SCH (09:18)
[2023-09-08] MEDS ORDERED: ACETAMINOPHEN 325 MG TAB PO PRN (09:22)
[2023-09-08] MEDS: PANTOprazole 40 MG TAB PO SCH (10:30)
[2023-09-08] MEDS: bisacodyL 5 MG TABEC PO SCH (20:30)
[2023-09-09] MEDS: MELATONIN 3 MG TAB PO PRN (03:20)
[2023-09-09 06:58] LABS: Basophils # (auto) 0.04 K/uL (0.00-0.20); Basophils % (auto) 0.3 %; Eosinophils # (auto) 0.07 K/uL (0.00-0.50); Eosinophils % (auto) 0.5 %; Hematocrit (blood only) 35.4 % (37.0-47.0); Hemoglobin 11.7 g/dl (12.0-16.0); Immature Granulocytes % (auto) 0.7 %; Lymphocytes # (auto) 1.69 K/uL (1.20-3.40); Lymphocytes % (auto) 12.2 %; Mean Corpuscular Hemoglobin 29.8 pg (25.0-34.0); Mean Corpuscular Hgb Conc 33.1 g/dL (32.0-36.0); Mean Corpuscular Volume 90.3 fL (80.0-100.0); Mean Platelet Volume 11.2 fL (9.4-12.4); Monocytes # (auto) 0.78 K/uL (0.11-0.59); Monocytes % (auto) 5.6 %; Neutrophils # (auto) 11.22 K/uL (1.40-6.50); Neutrophils % (auto) 80.7 %; Platelet Count 202 K/uL (130-400); RDW Coefficient of Variation 13.4 % (11.5-14.5); RDW Standard Deviation 43.6 fL (36.4-46.3); Red Blood Count 3.92 M/uL (4.20-5.40)
[2023-09-09] MEDS ORDERED: NON-FORMULARY MEDICATION (Omeprazole 20 mg Capsule,Delayed Release(Dr/Ec)) PO SCH (09:00)
[2023-09-09] MEDS ORDERED: NON-FORMULARY MEDICATION (Prenatal Multivit-Min-Fe-Fa 1 mg Tablet) PO SCH (09:00)
[2023-09-09] MEDS: MAGNESIUM OXIDE 400 MG TAB PO SCH (09:10)
[2023-09-09] MEDS ORDERED: bisacodyL 10 MG SUPP PR PRN (09:11)
--- NOTE | 2023-09-09 10:08 | Obstetrical Progress Note ---
Date of Service September 09, 2023 Subjective Ambulation: ambulating normally Voiding: no voiding problems Passing Gas:: Yes Diet Tolerance:: regular diet Lochia:: Small Feeding Type:: bottle feeding Current Pain Level(1-10): 0 doing well Physical Exam Constitutional WD/WN, vitals as above Gastrointestinal (Abdomen) Inspection/Auscultation: abdomen normal to inspection abdomen soft and non-tender. fundus firm Musculoskeletal Extremities: extremities normal to inspection Skin no rashes, warm and dry Neurologic patellar DTR's 2+ bilat, sensation intact Psychiatric A+Ox3, euthymic affect Results & Data Vital Signs (Past 12 Hours) Vital Signs Temp Pulse Resp BP Pulse Ox O2 Del Method 09/08/23 23:23 36.4 C L 82 16 112/68 95 Room Air Laboratory Results 09/07/23 09/07/23 09/07/23 05:53 08:15 08:15 WBC 11.49 H RBC 4.22 Hgb 12.7 Hct 36.6 L MCV 86.7 MCH 30.1 MCHC 34.7 RDW Std Deviation 41.2 RDW Coeff of Daniel 13.2 Plt Count 232 MPV 11.6 Immature Gran % (Auto) 0.7 Neut % (Auto) 77.5 Lymph % (Auto) 15.3 [place] % (Auto) 5.7 Eos % (Auto) 0.5 Baso % (Auto) 0.3 Neut # (Auto) 8.90 H Lymph # (Auto) 1.76 [place] # (Auto) 0.66 H Eos # (Auto) 0.06 Baso # (Auto) 0.03 Immature Gran # (Auto) 0.08 Cord ABG pH Cancelled Cord ABG pCO2 Cancelled Cord ABG pO2 Cancelled Cord ABG HCO3 Cancelled Cord ABG Base Excess Cancelled Cord ABG O2 Sat Cancelled Cord VBG pH 7.33 Cord VBG pCO2 49 Cord VBG pO2 26 Cord VBG HCO3 26 Cord VBG Base Excess -0.7 Cord VBG O2 Sat < 60.0 Barometric Pressure Cancelled Blood Gas Comments MONTIEL Cancelled Blood Type A Positive Antibody Screen NEGATIVE 09/08/23 09/09/23 06:15 06:10 WBC 17.37 H 13.90 H RBC 3.85 L 3.92 L Hgb 11.7 L 11.7 L Hct 33.4 L 35.4 L MCV 86.8 90.3 MCH 30.4 29.8 MCHC 35.0 33.1 RDW Std Deviation 40.9 43.6 RDW Coeff of Daniel 13.1 13.4 Plt Count 177 202 MPV 11.1 11.2 Immature Gran % (Auto) 0.7 0.7 Neut % (Auto) 87.5 80.7 Lymph % (Auto) 7.0 12.2 [place] % (Auto) 4.5 5.6 Eos % (Auto) 0.2 0.5 Baso % (Auto) 0.1 0.3 Neut # (Auto) 15.17 H 11.22 H Lymph # (Auto) 1.22 1.69 [place] # (Auto) 0.79 H 0.78 H Eos # (Auto) 0.04 0.07 Baso # (Auto) 0.02 0.04 Immature Gran # (Auto) 0.13 0.10 Cord ABG pH Cord ABG pCO2 Cord ABG pO2 Cord ABG HCO3 Cord ABG Base Excess Cord ABG O2 Sat Cord VBG pH Cord VBG pCO2 Cord VBG pO2 Cord VBG HCO3 Cord VBG Base Excess Cord VBG O2 Sat Barometric Pressure Blood Gas Comments Blood Type Antibody Screen
[2023-09-10 09:47] VITALS: BP 114/73; RESP 16; TEMP 98.1; O2SAT 96
--- NOTE | 2023-09-10 11:31 | Obstetrical Progress Note ---
Date of Service September 10, 2023 Subjective Ambulation: ambulating normally Voiding: no voiding problems Passing Gas:: Yes Diet Tolerance:: regular diet Lochia:: Small Feeding Type:: bottle feeding Current Pain Level(1-10): 0 doing well Physical Exam Constitutional WD/WN, vitals as above Gastrointestinal (Abdomen) Inspection/Auscultation: abdomen normal to inspection incision c/d/i Musculoskeletal Extremities: extremities normal to inspection Skin no rashes, warm and dry Neurologic patellar DTR's 2+ bilat, sensation intact Psychiatric A+Ox3, euthymic affect Results & Data Vital Signs (Past 12 Hours) Vital Signs Temp Pulse Resp BP Pulse Ox O2 Del Method 09/10/23 08:45 36.7 C 81 16 114/73 96 Room Air Laboratory Results 09/07/23 09/07/23 09/07/23 05:53 08:15 08:15 WBC 11.49 H RBC 4.22 Hgb 12.7 Hct 36.6 L MCV 86.7 MCH 30.1 MCHC 34.7 RDW Std Deviation 41.2 RDW Coeff of Daniel 13.2 Plt Count 232 MPV 11.6 Immature Gran % (Auto) 0.7 Neut % (Auto) 77.5 Lymph % (Auto) 15.3 [place] % (Auto) 5.7 Eos % (Auto) 0.5 Baso % (Auto) 0.3 Neut # (Auto) 8.90 H Lymph # (Auto) 1.76 [place] # (Auto) 0.66 H Eos # (Auto) 0.06 Baso # (Auto) 0.03 Immature Gran # (Auto) 0.08 Cord ABG pH Cancelled Cord ABG pCO2 Cancelled Cord ABG pO2 Cancelled Cord ABG HCO3 Cancelled Cord ABG Base Excess Cancelled Cord ABG O2 Sat Cancelled Cord VBG pH 7.33 Cord VBG pCO2 49 Cord VBG pO2 26 Cord VBG HCO3 26 Cord VBG Base Excess -0.7 Cord VBG O2 Sat < 60.0 Barometric Pressure Cancelled Blood Gas Comments MONTIEL Cancelled Blood Type A Positive Antibody Screen NEGATIVE 09/08/23 09/09/23 06:15 06:10 WBC 17.37 H 13.90 H RBC 3.85 L 3.92 L Hgb 11.7 L 11.7 L Hct 33.4 L 35.4 L MCV 86.8 90.3 MCH 30.4 29.8 MCHC 35.0 33.1 RDW Std Deviation 40.9 43.6 RDW Coeff of Daniel 13.1 13.4 Plt Count 177 202 MPV 11.1 11.2 Immature Gran % (Auto) 0.7 0.7 Neut % (Auto) 87.5 80.7 Lymph % (Auto) 7.0 12.2 [place] % (Auto) 4.5 5.6 Eos % (Auto) 0.2 0.5 Baso % (Auto) 0.1 0.3 Neut # (Auto) 15.17 H 11.22 H Lymph # (Auto) 1.22 1.69 [place] # (Auto) 0.79 H 0.78 H Eos # (Auto) 0.04 0.07 Baso # (Auto) 0.02 0.04 Immature Gran # (Auto) 0.13 0.10 Cord ABG pH Cord ABG pCO2 Cord ABG pO2 Cord ABG HCO3 Cord ABG Base Excess Cord ABG O2 Sat Cord VBG pH Cord VBG pCO2 Cord VBG pO2 Cord VBG HCO3 Cord VBG Base Excess Cord VBG O2 Sat Barometric Pressure Blood Gas Comments Blood Type Antibody Screen
[2023-09-10 11:41] VITALS: PULSE 92
== END 2023-09-10 12:30 | disposition home or self-care (01) | DRG 788 ==
LOC: 4S1 05:25 → EDSTATUS 07:30 → 4E2 11:34